=== PATIENT | female | born 1945 | race African-American/Black ===

== ENCOUNTER 2020-01-02 15:18 | Emergency (ER) | payer OTHER ==
[2020-01-02 15:29] VITALS: TEMP 99.4; BMI 36.3
[2020-01-02] MEDS ORDERED: LABETALOL HCL 5 MG/1 ML (100MG/20 ML VIAL) IVPUSH ONE ×2 (16:02→17:10)
[2020-01-02] MEDS ORDERED: LABETALOL HCL 5 MG/1 ML (200MG/40ML VIAL) IVPB ONE (16:10)
--- NOTE | 2020-01-02 16:15 | PDOC ---
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 Pt states at approximately 1 pm after getting up from the seated position she felt weak and lightheaded, pt daughter checked BP, noted to be over 200 and pt presented to the ED. Pt admits to persistent lightheadedness and new bilateral blurry vision while in the ED. Pt denies MURPHY, weakness/sensory changes on 1 side, neck pain, recent trauma, N/V/F/C, changes in speech or gait, CP, SOB, back pain, abdominal pain, changes in bowel or bladder habits, cough, sick contacts. Pt is visiting from [place] and does not have a PCP in [place]. Past History - Past Medical History Allergies/Adverse Reactions: Allergies Allergy/AdvReac Type Severity Reaction Status Date / Time No Known Allergies Allergy Verified 01/02/20 15:29 Home Medications: Ambulatory Orders Amlodipine Besylate [Norvasc -] 5 mg PO DAILY #30 tablet 01/02/20 COPD: No - Surgical History Cardiac Surgery: No - Immunization History Immunization Up to Date: No - Psycho Social/Smoking Cessation Hx Smoking History: Never smoked Have you smoked in the past 12 months: No Information on smoking cessation initiated: No Hx Alcohol Use: No Drug/Substance Use Hx: No Review of Systems - Review of Systems Constitutional: Yes: See HPI HEENTM: Yes: See HPI Respiratory: Yes: See HPI Cardiac (ROS): Yes: See HPI ABD/GI: Yes: See HPI : Yes: See HPI Musculoskeletal: Yes: See HPI Integumentary: Yes: See HPI Neurological: Yes: See HPI *Physical Exam - Vital Signs Last Vital Signs Temp Pulse Resp BP Pulse Ox 99.4 F 104 H 16 237/132 H 97 01/02/20 15:27 01/02/20 16:08 01/02/20 15:27 01/02/20 16:08 01/02/20 15:27 - Physical Exam General Appearance: Yes: Nourished, Appropriately Dressed. No: Apparent Distress HEENT: positive: EOMI, LIZZETH, Normal Voice Neck: positive: Supple. negative: Carotid bruit Respiratory/Chest: positive: Lungs Clear, Normal Breath Sounds. negative: Respiratory Distress, Accessory Muscle Use, Rapid RR, Crackles, Rales, Rhonchi, Stridor, Wheezing Cardiovascular: positive: Regular Rhythm, S1, S2, Tachycardia. negative: Edema, JVD, Murmur Vascular Pulses: Dorsalis-Pedis (R): 4+, Doralis-Pedis (L): 4+ Gastrointestinal/Abdominal: positive: Flat, Soft. negative: Protuberent, Distended, Guarding, Rebound, Tenderness Musculoskeletal: negative: CVA Tenderness Extremity: positive: Normal Capillary Refill, Normal Inspection, Normal Range of Motion Integumentary: positive: Normal Color, Dry, Warm Neurologic: positive: outside food server II-XII NML intact, Fully Oriented, Alert, Normal Mood/Affect, Normal Response, Motor Strength 5/5, Other (no unilateral visual changes, pt able to discriminate fingers at 6 inches and 6 feet). 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 Pt states at approximately 1 pm after getting up from the seated position she felt weak and lightheaded, pt daughter checked BP, noted to be over 200 and pt presented to the ED. Pt admits to persistent lightheadedness and new bilateral blurry vision while in the ED. Pt denies MURPHY, weakness/sensory changes on 1 side, neck pain, recent trauma, N/V/F/C, changes in speech or gait, CP, SOB, back pain, abdominal pain, changes in bowel or bladder habits, cough, sick contacts. Pt is visiting from [place] and does not have a PCP in [place]. vitals show elevated BP over 230 and HR 104 Do not have past medical records to compare, EKG NSR without acute signs of ischemia CXR no infiltrates, heart is enlarged Head CT normal 01/02/20 18:09 Labs show elevated renal function, no prior values to compare Discussed case with pt son Kahlil [phone], states Mother just moved to [place] on the of this month and does not have PCP f/u prisca Berryibe placed a referral with call back in 3-5 days for appo intment with [facility] Shared decision making with the patient and her son to not have her admitted during the COVID pandemic since she does not have signs of COVID on vitals or CXR, pt and son agrees outpatient follow up and starting on 5 mg amlodipine is the best course of action for the patient. BP improved to 190s systolic after labetolol and amlodipine. Pt feels well, denies blurry vision and lightheadedness, ambulates without difficulty pt safe for DC home with BP meds and PCP f/u Son will pick the pt up and is aware of discharge plans Discharge - Discharge Information Problems reviewed: Yes Clinical Impression/Diagnosis: Hypertension Condition: Stable - Admission No - Additional Discharge Information Prescriptions: Amlodipine Besylate [Norvasc -] 5 mg PO DAILY #30 tablet - Follow up/Referral Referrals: [facility] [place] [Provider Group] - Patient Discharge Instructions Patient Printed Discharge Instructions: DI for High Blood Pressure, How to Monitor Your Blood Pressure at Home Additional Instructions: You will receive a call from the Primary Doctor clinic referred to you at [facility] within the next 3-5 days. Please call the clinic Saturday morning as well to inform them. Please take the medication Amlodipine 5 mg daily until you see the Primary Doctor and have further instruction. Discuss your elevated renal function labs with the Primary doctor as well. Return to the ER for new or concerning symptoms including but not limited to: headaches, changes in vision, changes in speech, changes in balance. Thank you - Post Discharge Activity
--- NOTE | 2020-01-02 16:29 | PDOC ---
Documentation entered by Chris Jones SCRIBE, acting as scribe for Marcia Duncan MD. Marcia Duncan MD: This documentation has been prepared by the Karen olson Angel, SCRIBE, under my direction and personally reviewed by me in its entirety. I confirm that the documentation accurately reflects all work, treatment, procedures, and medical decision making performed by me. Attending Attestation - Resident Resident Name: PioKamari - ED Attending Attestation I have performed the following: I have examined & evaluated the patient, The case was reviewed & discussed with the resident, I agree w/resident's findings & plan, Exceptions are as noted - HPI HPI: 01/02/20 16:25 The patient is a 74 year old female with a significant past medical history of DVT, PE and HTN (non-compliant with medications) who presents to the ED with lightheadedness, bilateral blurry vision and high blood pressure. The patient states hat earlier today she stood up and began feeling lightheaded and weak, shortly after the patients daughter checked her blood pressure which was over 200 prompting her arrival to the ED. The patient denies SOB, changes to gait, nausea, vomiting, diarrhea, constipation or headache. - Physicial Exam PE: 01/02/20 16:28 NAD, well appearing EOMI, LIZZETH RRR CTABL soft NTND gait, balance, speech WNL A&O x 3 - Medical Decision Making 01/02/20 16:28 74yoF hx of HTN not on meds, DVT/PE not on AC presents w/ HTN and mild symptoms. - labs - hct - cxr - ekg - bp control, start EMILY-I - DC, needs PMD for f/u. Discharge - Discharge Information Problems reviewed: Yes Clinical Impression/Diagnosis: Hypertension Condition: Stable - Follow up/Referral - Patient Discharge Instructions - Post Discharge Activity
[2020-01-02 16:59] LABS: BASO % 0.4 % (0-2.0); EOS % 1.3 % (0-4.5); HEMATOCRIT 37.2 % (32.4-45.2); MCH 26.1 pg (25.7-33.7); MCHC 32.4 g/dl (32.0-36.0); MEAN CELL VOLUME 80.7 fl (80-96); MEAN PLT VOLUME 11.6 fl (7.5-11.1); MONO % 6.1 % (3.8-10.2); NEUT % 68.2 % (42.8-82.8); PLATELET COUNT 159 K/MM3 (134-434); RBC 4.61 M/mm3 (3.60-5.2); RDW 14.7 % (11.6-15.6); WHITE BLOOD COUNT 7.2 K/mm3 (4.0-10.0)
[2020-01-02] MEDS ORDERED: amLODIPine BESYLATE 5 MG TABLET (FP) PO ONE (17:10)
[2020-01-02] MEDS ORDERED: amLODIPine BESYLATE 5 MG TABLET (FP) ONE (17:14)
[2020-01-02 17:19] LABS: BILIRUBIN,TOTAL 0.7 mg/dL (0.2-1); BLOOD UREA NITROGEN 18.4 mg/dL (7-18); CREATININE 1.7 mg/dL (0.55-1.3); POTASSIUM 3.9 mmol/L (3.5-5.1); TOT PROT 7.6 g/dl (6.4-8.2)
[2020-01-02 17:26] LABS: INR 1.01 (0.83-1.09); PROTHROMBIN TIME (PATIENT) 11.9 SEC (9.7-13.0)
[2020-01-02 18:15] VITALS: BP 194/98; PULSE 96
[2020-01-04] MEDS ORDERED: FAMOTIDINE 20 MG TABLET ONE (14:46)
--- NOTE | 2020-01-04 14:54 | EKG ---
Test Reason : Blood Pressure : / mmHG Vent. Rate : 080 BPM Atrial Rate : 080 BPM P-R Int : 150 ms QRS Dur : 088 ms QT Int : 378 ms P-R-T Axes : 034 -25 148 degrees QTc Int : 435 ms NORMAL SINUS RHYTHM LEFT VENTRICULAR HYPERTROPHY WITH REPOLARIZATION ABNORMALITY ABNORMAL ECG WHEN COMPARED WITH ECG OF 02-JAN-2020 15:47, T WAVE INVERSION NOW EVIDENT IN LATERAL LEADS Confirmed by GLADIS LEONARD MD ([id number]) on 01/04/2020 2:53:23 PM Referred By: Confirmed By:GLADIS LEONARD MD
--- NOTE | 2020-01-04 14:54 | EKG ---
Test Reason : Blood Pressure : / mmHG Vent. Rate : 102 BPM Atrial Rate : 102 BPM P-R Int : 160 ms QRS Dur : 086 ms QT Int : 342 ms P-R-T Axes : 042 -07 079 degrees QTc Int : 445 ms SINUS TACHYCARDIA MINIMAL VOLTAGE CRITERIA FOR LVH, MAY BE NORMAL VARIANT BORDERLINE ECG NO PREVIOUS ECGS AVAILABLE Confirmed by GLADIS LEONARD MD ([id number]) on 01/04/2020 2:53:32 PM Referred By: Confirmed By:GLADIS LEONARD MD
--- NOTE | 2020-01-08 17:21 | PDOC ---
Documentation entered by Loreta Mcmanus SCRIBE, acting as scribe for Jaylen Diaz DO. Jaylen Diaz DO: This documentation has been prepared by the Marietta olson Xhesika, SCRIBE, under my direction and personally reviewed by me in its entirety. I confirm that the documentation accurately reflects all work, treatment, procedures, and medical decision making performed by me. *Physical Exam - Vital Signs Last Vital Signs Temp Pulse Resp BP Pulse Ox 99.4 F 104 H 18 218/115 H 98 01/02/20 15:27 01/02/20 16:24 01/02/20 16:24 01/02/20 17:12 01/02/20 16:38 - Physical Exam 01/02/20 17:26 Patient signed out to me by previous attending for follow up chest CT and labs patient came to ED for minimal blurring of vision and htn no focal deficits one exam, awake, alert, well appearing ED Treatment Course - LABORATORY CBC & Chemistry Diagram: 01/02/20 16:00 01/02/20 16:00 - ADDITIONAL ORDERS Additional order review: Laboratory Results 01/02/20 01/02/20 16:00 15:48 Sodium 142 Potassium 3.9 Chloride 109 H Carbon Dioxide 25 Anion Gap 8 BUN 18.4 H Creatinine 1.7 H Est GFR (CKD-EPI)AfAm 34.32 Est GFR (CKD-EPI)NonAf 29.61 POC Glucometer 168 Random Glucose 158 H Calcium 8.0 L Total Bilirubin 0.7 AST 12 L ALT 16 Alkaline Phosphatase 106 Creatine Kinase 134 Troponin I 0.02 Total Protein 7.6 Albumin 3.0 L 01/02/20 01/02/20 16:00 15:48 RBC 4.61 MCV 80.7 MCHC 32.4 RDW 14.7 MPV 11.6 H Neutrophils % 68.2 Lymphocytes % 24.0 Monocytes % 6.1 Eosinophils % 1.3 Basophils % 0.4 POC Glucometer 168 - Medications Given in the ED: ED Medications Discontinued Medications Generic Name Dose Route Start Last Admin Trade Name Freq PRN Reason Stop Dose Admin Amlodipine Besylate 5 mg 01/02/20 17:10 01/02/20 17:24 Norvasc - PO 01/02/20 17:11 5 mg ONCE ONE Administration Labetalol HCl 10 mg 01/02/20 16:02 01/02/20 16:21 Normodyne Injection - IVPUSH 01/02/20 16:03 10 mg ONCE ONE Administration Labetalol HCl 10 mg 01/02/20 17:10 01/02/20 17:23 Normodyne Injection - IVPUSH 01/02/20 17:11 10 mg ONCE ONE Administration Medical Decision Making - Medical Decision Making 01/02/20 17:32 Patient signed out to em by previous attending follow up chest CT and labs patient came to ED for minimal blurring of vision and htn no focal deficits one exam, awake, alert, well appearing reassess: BP decreased, pt feeling better will give po amlodipine, recheck BP 40% reduction on map creatinine elevated but unclear to previous levels advise to follow up with PCP as soon as possible pt is stable at this time will berkley d/c on amlodipine Discharge - Discharge Information Problems reviewed: Yes Clinical Impression/Diagnosis: Hypertension Condition: Stable Disposition: HOME - Additional Discharge Information Prescriptions: Amlodipine Besylate [Norvasc -] 5 mg PO DAILY #30 tablet - Follow up/Referral Referrals: [facility] at [place] [Provider Group] - Patient Discharge Instructions Patient Printed Discharge Instructions: DI for High Blood Pressure, How to Monitor Your Blood Pressure at Home Additional Instructions: You will receive a call from the Primary Doctor clinic referred to you at [facility] within the next 3-5 days. Please call the clinic Saturday morning as well to inform them. Please take the medication Amlodipine 5 mg daily until you see the Primary Doctor and have further instruction. Discuss your elevated renal function labs with the Primary doctor as well. Return to the ER for new or concerning symptoms including but not limited to: headaches, changes in vision, changes in speech, changes in balance. Thank you - Post Discharge Activity
== END 2020-01-02 19:00 | disposition home or self-care (01) ==
LOC: JER 15:18
PROC: 3E033GC Introduction of Other Therapeutic Substance into Peripheral Vein, Percutaneous Approach (ICD-10-PCS; principal; 2020-01-02)
DX: I10 Essential (primary) hypertension (principal)
CPT/HCPCS: 36415; 70450-TC; 71045-TC-FY; 80053; 82550; 82962; 84484; 85025; 85610; 93005; 93010; 96374; 96376; 99285-25

== ENCOUNTER 2020-04-27 14:40 | Inpatient (IN) | payer OTHER ==
[2020-04-27 14:50] VITALS: BMI 46.0
[2020-04-27] MEDS ORDERED: LABETALOL HCL 5 MG/1 ML (100MG/20 ML VIAL) IVPUSH ONE ×3 (15:27→19:37)
[2020-04-27] MEDS ORDERED: LABETALOL HCL 5 MG/1 ML (200MG/40ML VIAL) IVPB ONE (15:38)
[2020-04-27 16:01] LABS: BASO % 1.3 % (0-2.0); EOS % 1.5 % (0-4.5); HEMATOCRIT 34.7 % (32.4-45.2); HEMOGLOBIN 11.3 GM/dL (10.7-15.3); LYMPH % 22.5 % (8-40); MCH 26.7 pg (25.7-33.7); MCHC 32.5 g/dl (32.0-36.0); MEAN CELL VOLUME 82.2 fl (80-96); MEAN PLT VOLUME 10.5 fl (7.5-11.1); MONO % 6.5 % (3.8-10.2); NEUT % 68.2 % (42.8-82.8); PLATELET COUNT 187 K/MM3 (134-434); RBC 4.22 M/mm3 (3.60-5.2); RDW 15.6 % (11.6-15.6); WHITE BLOOD COUNT 7.5 K/mm3 (4.0-10.0)
--- NOTE | 2020-04-27 16:08 | PDOC ---
History of Present Illness - General Chief Complaint: Blood Pressure Problem Stated Complaint: BLOOD PRESSURE PROBLEM Time Seen by Provider: 04/27/20 14:52 - History of Present Illness Initial Comments: 04/27/20 15:41 The patient is a 74 year old female with a significant past medical history of DVT, PE and HTN (non-compliant with medications) who presents to the ED with bilateral knee pain s/p fall as well as an elevated BP reading by EMS in the 200s. Pt states she was walking and tripped on an elevated sidewalk. Pt states she was able to brace her fall with her hands. Pt denies hitting her head and LOC. She does complain of bilateral knee pain after the fall, dull, not radiating. Able to walk. Before the fall, she denies lightheadedness, dizziness, palpitations, chest pain, SOB. Currently, ROS is negative. She states she saw the PCP she was referred to after her last ED presentation, but stopped taking the medications because it made her legs feel weak. PMH: as above PSH: remote history of bowel obstruction treated surgically Medications: was discharged on amlodipine 5mg, but does not take any medications Allergies: denies ROS GENERAL/CONSTITUTIONAL: No fever or chills. No weakness. HEAD, EYES, EARS, NOSE AND THROAT: No change in vision. No ear pain or discharge. No sore throat. CARDIOVASCULAR: No chest pain or shortness of breath RESPIRATORY: No cough, wheezing, or hemoptysis. GASTROINTESTINAL: No nausea, vomiting, diarrhea or constipation. GENITOURINARY: No dysuria, frequency, or change in urination. MUSCULOSKELETAL: b/l knee pain. no neck or back pain SKIN: No rash NEUROLOGIC: No headache, vertigo, loss of consciousness, or change in strength/sensation. ENDOCRINE: No increased thirst. No abnormal weight change HEMATOLOGIC/LYMPHATIC: No anemia, easy bleeding, or history of blood clots. ALLERGIC/IMMUNOLOGIC: No hives or skin allergy. PE GENERAL: Awake, alert, and fully oriented, in no acute distress HEAD: ecchymosis over lower left orbit without crepitus or instability EYES: PERRLA, EOMI, sclera anicteric, conjunctiva clear ENT: Auricles normal inspection, hearing grossly normal, nares patent, oropharynx clear without exudates. Moist mucosa NECK: Normal ROM, supple, no lymphadenopathy, JVD, or masses LUNGS: No distress, speaks full sentences, clear to auscultation bilaterally HEART: Regular rate and rhythm, normal S1 and S2, no murmurs, rubs or gallops, peripheral pulses normal and equal bilaterally. ABDOMEN: Soft, nontender, normoactive bowel sounds. No guarding, no rebound. No masses EXTREMITIES : Normal inspection, Normal range of motion, no edema. No clubbing or cyanosis. small abrasions on knees. Knees tender to palpation. Normal ROM, strength, sensation, gait. NEUROLOGICAL: Cranial nerves II through XII grossly intact. Normal speech, normal gait, no focal sensorimotor deficits SKIN: Warm, Dry, normal turgor, no rashes or lesions noted Vital Signs Temp Pulse Resp BP Pulse Ox 98.2 F 94 H 16 232/108 H 98 04/27/20 15:23 04/27/20 14:48 04/27/20 14:48 04/27/20 14:48 04/27/20 14:48 Assessment and Plan The patient is a 74 year old female with a significant past medical history of DVT, PE and HTN (non-compliant with medications) who presents to the ED with bilateral knee pain s/p fall as well as an elevated BP reading by EMS in the 200s. BP on arrival is 232/108. Other vitals wnl. Asymptomatic. Will get labs to assess for end organ damage. The fall is likely mechanical based on the story. Physical exam notable for ecchymosis over lower left orbit without crepitus or instability, as well as tenderness and small abrasions over both knees. Low concern for fracture given exam. Will get head and c-spine given mechanism and age. -EKG to evaluate for ishemic changes -CXR to evaluate for pulmonary edema and widened mediastinum -CBC, CMP, trops to evaluate for end organ ischemia or infection -CT head and c-spine -IV labetalol to reduce BP 04/27/20 17:10 EKG: NSR, vent rate 91, normal axis and intervals, CXR:No acute pathology. No significant change since 01/02/2020. IVC filter. Large heart. Unfolded aorta. Clear lungs. CT head: No acute pathology. No significant change since 01/02/2020. Large heart. Unfolded aorta. Clear lungs. CT c-spine: no evidence of fracture. Multilevel degenerative disc and facet joint changes are seen. labs: Repeat bp 219/120. Another 10mg labetalol IV given. 04/27/20 17:21 Repeat bp 201/80. HR 71 04/27/20 17:29 Med rec from [facility]: amplodipine 10mg, losartan/HCTZ 100mg/25mg, glipizide 04/27/20 18:53 Repeat BP 226/92. Will give 20mg labetalol IV and admit for resistant hypertension -- not a safe discharge. Past History - Medical History Allergies/Adverse Reactions: Allergies Allergy/AdvReac Type Severity Reaction Status Date / Time No Known Allergies Allergy Verified 01/02/20 15:29 Home Medications: Ambulatory Orders Amlodipine Besylate [Norvasc -] 5 mg PO DAILY #30 tablet 01/02/20 COPD: No - Surgical History Cardiac Surgery: No - Reproductive History Is Patient Now?: No - Immunization History Immunization Up to Date: No - Psycho-Social/Smoking History Smoking History: Never smoked Have you smoked in the past 12 months: No Information on smoking cessation initiated: No - Substance Abuse Hx (Audit-C & DAST Scrn) How often the patient has a drink containing alcohol: Never Score: In Men: 4 or > Positive; In Women: 3 or > Positive: 0 Screen Result (Pos requires Nsg. Audit-10AR): Negative In the last yr the pt used illegal drug/Rx for NonMed reason: No Score: Yes response is considered Positive: 0 Screen Result (Positive result requires Nsg. DAST-10): Negative *Physical Exam - Vital Signs Last Vital Signs Temp Pulse Resp BP Pulse Ox 98.2 F 94 H 16 232/108 H 98 04/27/20 15:23 04/27/20 14:48 04/27/20 14:48 04/27/20 14:48 04/27/20 14:48 ED Treatment Course - LABORATORY CBC & Chemistry Diagram: 04/28/20 05:40 04/28/20 05:40 - RADIOLOGY Radiology Studies Ordered: Category Date Time Status CERVICAL SPINE CT W/O CONTR [CT] Stat CT Scan 04/27/20 15:[address] WITHOUT CONTRAST [CT] Stat CT Scan 04/27/20 15:29 Ordered CHEST PA & LAT [RAD] Stat Radiology 04/27/20 15:29 Ordered Discharge - Discharge Information Problems reviewed: Yes Clinical Impression/Diagnosis: Hypertensive urgency Head injury due to trauma Qualifiers: Encounter type: initial encounter Qualified Code(s): S09.90XA - Unspecified injury of head, initial encounter - Follow up/Referral - Patient Discharge Instructions - Post Discharge Activity
--- NOTE | 2020-04-27 16:11 | PDOC ---
Documentation entered by Loreta Mcmanus SCRIBE, acting as scribe for Davon Loya MD. Davon Loya MD: This documentation has been prepared by the Marietta olson Xhesika, SCRIBE, under my direction and personally reviewed by me in its entirety. I confirm that the documentation accurately reflects all work, treatment, procedures, and medical decision making performed by me. Attending Attestation - Resident Resident Name: ArlenenieshaDheeraj - ED Attending Attestation I have performed the following: I have examined & evaluated the patient, The case was reviewed & discussed with the resident, I agree w/resident's findings & plan, Exceptions are as noted - HPI HPI: 04/27/20 15:09 The patient is a 74 year old female with a significant past medical history of DVT, PE and HTN (non-compliant with medications) who presents to the ED with bilateral knee pain s/p fall. Pt states she was walking and tripped on an elevated sidewalk. Pt states she was able to brace her fall with her hands. Pt denies hitting her head and LOC. Allergies: NKDA - Physicial Exam PE: 04/27/20 16:06 EXAMINATION CONSTITUTIONAL: awake, alert; well-nourished; in no apparent distress HEAD: Normocephalic; atraumatic EYES: PERRL; EOM intact; + left periorbital edema with ttp ENMT: External appears normal; normal oropharynx NECK: Supple; non-tender; no midline cervical ttp CARD: Normal S1, S2; 2/6 se murmurs, no rubs, or gallops RESP: Normal chest excursion with respiration; breath sounds clear and equal bilaterally; no wheezes, rhonchi, or rales ABD: Soft, non-distended; non-tender; no palpable organomegaly, no palpable hernias EXT: Normal ROM in all four extremities; non-tender to palpation; distal pulses intact PELVIS: Stable SKIN: Warm, dry, no rash NEURO: cn ii-xii groslly intact, motor: 5/5x4, no pronation drift. gait-stable - Medical Decision Making 04/27/20 16:10 Patient is 75-year-old female with history of DVT/PE in the past, hypertension, noncompliant with medication regimen for the past 1 month presents with bilateral knee and facial pain status post mechanical fall and elevated blood pressure. In the ER, patient is noted to be hypertensive, nontoxic-appearing, without evidence of endorgan damage at this time. EKG shows no evidence of acute ischemia. Inverted T waves are noted and aVL and V6. Will obtain CT of head and cervical spine. Will administer IV labetalol followed by oral meds. If no evidence of SARAH, positive troponins, will discharge. Discharge - Discharge Information Problems reviewed: Yes Clinical Impression/Diagnosis: Hypertensive urgency Head injury due to trauma Qualifiers: Encounter type: initial encounter Qualified Code(s): S09.90XA - Unspecified injury of head, initial encounter - Follow up/Referral - Patient Discharge Instructions - Post Discharge Activity
[2020-04-27 16:30] LABS: ALBUMIN 3.2 g/dl (3.4-5.0); ALK PHOS 109 U/L (45-117); ANION GAP 5 MMOL/L (8-16); BILIRUBIN,TOTAL 1.1 mg/dL (0.2-1); CALCIUM 8.6 mg/dL (8.5-10.1); CHLORIDE 109 mmol/L (98-107); CO2 27 mmol/L (21-32); CREATININE 1.8 mg/dL (0.55-1.3); GLUCOSE,RANDOM 194 mg/dL (74-106); SGOT/AST 46 U/L (15-37); SGPT/ALT 18 U/L (13-61); SODIUM 140 mmol/L (136-145)
[2020-04-27 19:18] LABS: EPI CELLS 26 /uL (0-25.1); HYALINE CASTS 2 /uL (0-3.1); URINE APPEARANCE CLEAR; URINE BACTERIA 1977 /uL (0-1359); URINE BILIRUBIN NEGATIVE (NEGATIVE); URINE COLOR YELLOW; URINE GLUCOSE (UA) NEGATIVE (NEGATIVE); URINE KETONE NEGATIVE (NEGATIVE); URINE LEUK ESTERASE 1+ (NEGATIVE); URINE NITRITE NEGATIVE (NEGATIVE); URINE PROTEIN 3+ (NEGATIVE); URINE RBC 12 /uL (0-23.9); URINE UROBILINOGEN 0.2 mg/dL (0.2-1.0); URINE WBC 196 /uL (0-25.8)
--- NOTE | 2020-04-27 19:19 | PDOC ---
*Physical Exam - Vital Signs Last Vital Signs Temp Pulse Resp BP Pulse Ox 98.2 F 74 18 201/80 H 97 04/27/20 15:23 04/27/20 17:21 04/27/20 17:21 04/27/20 17:21 04/27/20 17:21 ED Treatment Course - LABORATORY CBC & Chemistry Diagram: 04/27/20 15:30 04/27/20 16:55 - ADDITIONAL ORDERS Additional order review: Laboratory Results 04/27/20 04/27/20 16:55 15:30 Sodium 140 Potassium 3.9 6.0 H Chloride 109 H Carbon Dioxide 27 Anion Gap 5 L BUN 20.0 H Creatinine 1.8 H Est GFR (CKD-EPI)AfAm 32.03 Est GFR (CKD-EPI)NonAf 27.63 Random Glucose 194 H Calcium 8.6 Total Bilirubin 1.1 H AST 46 H ALT 18 Alkaline Phosphatase 109 Creatine Kinase 303 H Creatine Kinase Index 0.9 CK-MB (CK-2) 3.0 Troponin I < 0.02 Total Protein 8.0 Albumin 3.2 L 04/27/20 15:30 RBC 4.22 MCV 82.2 MCHC 32.5 RDW 15.6 MPV 10.5 Neutrophils % 68.2 Lymphocytes % 22.5 Monocytes % 6.5 Eosinophils % 1.5 Basophils % 1.3 D - Medications Given in the ED: ED Medications Discontinued Medications Generic Name Dose Route Start Last Admin Trade Name Freq PRN Reason Stop Dose Admin Labetalol HCl 10 mg 04/27/20 15:27 04/27/20 15:35 Normodyne Injection - IVPUSH 04/27/20 15:28 10 mg ONCE ONE Administration Labetalol HCl 10 mg 04/27/20 16:50 04/27/20 17:03 Normodyne Injection - IVPUSH 04/27/20 16:51 10 mg ONCE ONE Administration Medical Decision Making - Medical Decision Making 04/27/20 19:13 Signed out to me by Dr. Mann. Patient has HTN and does not take medications, supposed to take amlodipine 10mg, losartan 100mg, HCTZ 25mg. Also had a fall and head injury. BP >200. Mentating normally, no MURPHY, deficits. CT head no ICH. Labs WNL other than Cr 1.8, slightly up from 1.7 prior, initial K hemolyzed and normal after. ECG NSR with HR 91, QTc 435, TWI V6, no CLINTON/D. Already given 2x 10mg labetalol with modest effect. Considering Cardene drip for refractory HTN. Will need admission for BP control and home anti-HTN medication planning. 04/27/20 19:36 Repeat BP 236/89, but mentating normally and feeling well. Discussed importance of BP management for long-term health. Giving 20mg labetalol as well as home 100mg Losartan and 25mg HCTZ. 04/27/20 21:10 SBP consistently over 200 despite medications. Starting Cardene drip for refractory HTN with BP goal max 25% decrease from baseline (> SBP 190) Consulting ICU for admission. 04/27/20 21:26 ICU consulted, will come down to evaluate, accepts for admission. Discharge - Discharge Information Problems reviewed: Yes Clinical Impression/Diagnosis: Hypertensive urgency Head injury due to trauma Qualifiers: Encounter type: initial encounter Qualified Code(s): S09.90XA - Unspecified injury of head, initial encounter - Follow up/Referral - Patient Discharge Instructions - Post Discharge Activity
[2020-04-27] MEDS ORDERED: LOSARTAN POTASSIUM 50 MG TABLET (FP) PO ONE (19:38)
[2020-04-27] MEDS ORDERED: HYDROCHLOROTHIAZIDE 25 MG TABLET (FP) PO ONE (19:38)
[2020-04-27] MEDS ORDERED: HYDROCHLOROTHIAZIDE 25 MG TABLET (FP) ONE (19:52)
[2020-04-27] MEDS ORDERED: LOSARTAN POTASSIUM 50 MG TABLET (FP) ONE (19:53)
[2020-04-27] MEDS ORDERED: NICARDIPINE 25 MG in DEXTROSE 5%-WATER - 240 ML IVPB SCH (21:15)
[2020-04-27] MEDS ORDERED: MUPIROCIN 2% TOPICAL OINTMENT FOR DECOLONIZATION NS SCH (23:30)
[2020-04-28] MEDS ORDERED: ACETAMINOPHEN 325 MG TABLET (FP) PO PRN (02:04)
[2020-04-28] MEDS: MUPIROCIN 2% TOPICAL OINTMENT FOR DECOLONIZATION NS SCH ×3 (02:30→22:08)
[2020-04-28] MEDS: NICARDIPINE 25 MG in DEXTROSE 5%-WATER - 240 ML IVPB SCH ×3 (03:37→23:22)
[2020-04-28 06:28] LABS: BASO % 0.4 % (0-2.0); EOS % 1.2 % (0-4.5); HEMATOCRIT 38.1 % (32.4-45.2); HEMOGLOBIN 12.5 GM/dL (10.7-15.3); LYMPH % 22.4 % (8-40); MCH 26.4 pg (25.7-33.7); MCHC 32.7 g/dl (32.0-36.0); MEAN CELL VOLUME 80.7 fl (80-96); MEAN PLT VOLUME 9.4 fl (7.5-11.1); MONO % 6.3 % (3.8-10.2); NEUT % 69.7 % (42.8-82.8); PLATELET COUNT 164 K/MM3 (134-434); RBC 4.72 M/mm3 (3.60-5.2); RDW 15.2 % (11.6-15.6); WHITE BLOOD COUNT 8.7 K/mm3 (4.0-10.0)
--- NOTE | 2020-04-28 06:43 | CONSULT ---
Consultation: REQUESTING PROVIDER: CONSULT REQUEST: We have been asked to medically evaluate this patient for (specify). 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 Pt reports walking down the street today and stepping into a pot hole, losing her balance, fell hit the left side of her face and bilateral knees. Pt denies LOC, CP, palpitations, SOB, MURPHY, changes in vision, weakness or sensory deficits on 1 side prior to or after the fall and states she accidentally tripped due to the pot hole. Pt states she was able to ambulate after the fall with a normal gait. Pt seen in the ED once before with elevated BP, treated with amlodipine and labetolol PO with improvement in BP to approx 25% decrease in systolic BP. Pt BP in the ED noted to be 240s systolic Pt states she saw the PCP she was referred to after her last ED presentation, but stopped taking the medications because it made her legs feel weak and has no t been taking any medications to control her BP Today, pt given a total of 40 mg Labetolol IV, 100 mg Losartan and 25 mg HCTZ without sustained improvement in BP and pt was started on a Nicardipine drip. CT head and C spine neg for CVA, fracture or dislocation Labs show persistent elevation in Cr since last lab work to 1.8 EKG: NSR, vent rate 91, normal axis and intervals Starting Cardene drip for refractory HTN with BP goal max 25% decrease from baseline (> SBP 190) REVIEW OF SYSTEMS: CONSTITUTIONAL: Absent: fever, chills, diaphoresis, generalized weakness, malaise, loss of appetite, weight change HEENT: Absent: rhinorrhea, nasal congestion, throat pain, throat swelling, difficulty swallowing, mouth swelling, ear pain, eye pain, visual changes CARDIOVASCULAR: Absent: chest pain, syncope, palpitations, irregular heart rate, lightheadedness, peripheral edema RESPIRATORY: Absent: cough, shortness of breath, dyspnea with exertion, orthopnea, wheezing, stridor, hemoptysis GASTROINTESTINAL: Absent: abdominal pain, abdominal distension, nausea, vomiting, diarrhea, constipation, melena, hematochezia GENITOURINARY: Absent: dysuria, frequency, urgency, hesitancy, hematuria, flank pain, genital pain MUSCULOSKELETAL: Admits to SKIN: Absent: rash, itching, pallor HEMATOLOGIC/IMMUNOLOGIC: Absent: easy bleeding, easy bruising, lymphadenopathy, frequent infections ENDOCRINE: Absent: unexplained weight gain, unexplained weight loss, heat intolerance, cold intolerance NEUROLOGIC: Absent: headache, focal weakness or paresthesias, dizziness, unsteady gait, seizure, mental status changes, bladder or bowel incontinence PSYCHIATRIC: Absent: anxiety, depression, suicidal or homicidal ideation, hallucinations. PHYSICAL EXAMINATION Vital Signs - 24 hr 04/27/20 04/27/20 04/27/20 14:48 15:23 16:05 Temperature 98.2 F Pulse Rate 94 H Pulse Rate [ 88 Apical] Respiratory 16 18 Rate Blood Pressure 232/108 H Blood Pressure [Left Arm] Blood Pressure 242/112 H [Right Arm] O2 Sat by Pulse 98 98 Oximetry (%) 04/27/20 04/27/20 04/27/20 16:30 17:19 17:21 Temperature Pulse Rate Pulse Rate [ 80 74 Apical] Respiratory 18 18 Rate Blood Pressure Blood Pressure [Left Arm] Blood Pressure 219/120 H 201/80 H [Right Arm] O2 Sat by Pulse 99 99 97 Oximetry (%) 04/27/20 04/27/20 04/27/20 19:03 19:50 20:48 Temperature Pulse Rate Pulse Rate [ 82 69 Apical] Respiratory 18 18 Rate Blood Pressure Blood Pressure 208/111 H [Left Arm] Blood Pressure 234/118 H [Right Arm] O2 Sat by Pulse 100 98 100 Oximetry (%) 04/27/20 04/27/20 04/27/20 21:10 22:10 23:27 Temperature Pulse Rate 69 Pulse Rate [ 70 90 Apical] Respiratory 18 18 Rate Blood Pressure 229/96 H Blood Pressure 250/114 H 217/84 H [Left Arm] Blood Pressure [Right Arm] O2 Sat by Pulse 97 100 Oximetry (%) 04/28/20 04/28/20 04/28/20 00:22 00:45 01:30 Temperature 98.3 F Pulse Rate 83 70 77 Pulse Rate [ Apical] Respiratory 24 H 12 17 Rate Blood Pressure 196/98 H 197/85 H 189/81 H Blood Pressure [Left Arm] Blood Pressure [Right Arm] O2 Sat by Pulse 93 L 97 96 Oximetry (%) 08/04/28/20 04/28/20 02:03 02:10 02:22 Temperature Pulse Rate 103 H 79 75 Pulse Rate [ Apical] Respiratory 31 H 16 16 Rate Blood Pressure 230/104 H 217/101 H 190/81 H Blood Pressure [Left Arm] Blood Pressure [Right Arm] O2 Sat by Pulse 95 97 96 Oximetry (%) 04/28/20 04/28/20 04/28/20 02:30 03:37 04:35 Temperature Pulse Rate 81 77 73 Pulse Rate [ Apical] Respiratory 20 Rate Blood Pressure 155/119 H 174/85 H 194/152 H Blood Pressure [Left Arm] Blood Pressure [Right Arm] O2 Sat by Pulse 94 L Oximetry (%) 04/28/20 04:55 Temperature Pulse Rate 81 Pulse Rate [ Apical] Respiratory Rate Blood Pressure 180/100 H Blood Pressure [Left Arm] Blood Pressure [Right Arm] O2 Sat by Pulse Oximetry (%) GENERAL: Awake, alert, and fully oriented, in no acute distress. HEAD: Normal with no signs of trauma. EYES: Pupils equal, round and reactive to light, extraocular movements intact, sclera anicteric, conjunctiva clear. No lid lag. EARS, NOSE, THROAT: Ears normal, nares patent, oropharynx clear without exudates. Moist mucous membranes. NECK: Normal range of motion, supple without lymphadenopathy, JVD, or masses. LUNGS: Breath sounds equal, clear to auscultation bilaterally. No wheezes, and no crackles. No accessory muscle use. HEART: Regular rate and rhythm, normal S1 and S2 without murmur, rub or gallop. ABDOMEN: Soft, nontender, not distended, normoactive bowel sounds, no guarding, no rebound, no masses. No hepatomegaly or splenomegaly. MUSCULOSKELETAL: Normal range of motion at all joints. No bony deformities or tenderness. No CVA tenderness. UPPER EXTREMITIES: 2+ pulses, warm, well-perfused. No cyanosis. No clubbing. Cap refill <2 seconds. No peripheral edema. LOWER EXTREMITIES: 2+ pulses, warm, well-perfused. No calf tenderness. No peripheral edema. NEUROLOGICAL: Cranial nerves II-XII intact. Normal speech. Normal gait. PSYCHIATRIC: Cooperative. Good eye contact. Appropriate mood and affect. SKIN: Warm, dry, normal turgor, no rashes or lesions noted. Laboratory Results - last 24 hr 04/27/20 04/27/20 04/27/20 15:30 15:30 16:55 WBC 7.5 RBC 4.22 Hgb 11.3 Hct 34.7 MCV 82.2 MCH 26.7 MCHC 32.5 RDW 15.6 Plt Count 187 MPV 10.5 Absolute Neuts (auto) 5.1 Neutrophils % 68.2 Lymphocytes % 22.5 Monocytes % 6.5 Eosinophils % 1.5 Basophils % 1.3 D Nucleated RBC % 0 Sodium 140 Potassium 6.0 H 3.9 Chloride 109 H Carbon Dioxide 27 Anion Gap 5 L BUN 20.0 H Creatinine 1.8 H Est GFR (CKD-EPI)AfAm 32.03 Est GFR (CKD-EPI)NonAf 27.63 Random Glucose 194 H Calcium 8.6 Total Bilirubin 1.1 H AST 46 H ALT 18 Alkaline Phosphatase 109 Creatine Kinase 303 H Creatine Kinase Index 0.9 CK-MB (CK-2) 3.0 Troponin I < 0.02 Total Protein 8.0 Albumin 3.2 L Urine Color Urine Appearance Urine pH Ur Specific [place] Urine Protein Urine Glucose (UA) Urine Ketones Urine Blood Urine Nitrite Urine Bilirubin Urine Urobilinogen Ur Leukocyte Esterase Urine WBC (Auto) Urine RBC (Auto) Urine Casts (Auto) U Epithel Cells (Auto) Urine Bacteria (Auto) 04/27/20 04/28/20 19:00 05:40 WBC 8.7 RBC 4.72 Hgb 12.5 Hct 38.1 MCV 80.7 MCH 26.4 MCHC 32.7 RDW 15.2 Plt Count 164 MPV 9.4 D Absolute Neuts (auto) 6.0 Neutrophils % 69.7 Lymphocytes % 22.4 Monocytes % 6.3 Eosinophils % 1.2 Basophils % 0.4 Nucleated RBC % 0 Sodium Potassium Chloride Carbon Dioxide Anion Gap BUN Creatinine Est GFR (CKD-EPI)AfAm Est GFR (CKD-EPI)NonAf Random Glucose Calcium Total Bilirubin AST ALT Alkaline Phosphatase Creatine Kinase Creatine Kinase Index CK-MB (CK-2) Troponin I Total Protein Albumin Urine Color Yellow Urine Appearance Clear Urine pH 5.0 Ur Specific [place] 1.016 Urine Protein 3+ H Urine Glucose (UA) Negative Urine Ketones Negative Urine Blood 1+ H Urine Nitrite Negative Urine Bilirubin Negative Urine Urobilinogen 0.2 Ur Leukocyte Esterase 1+ H Urine WBC (Auto) 196 Urine RBC (Auto) 12 Urine Casts (Auto) 2 U Epithel Cells (Auto) 26 Urine Bacteria (Auto) 1977 Active Medications Generic Name Dose Route Start Last Admin Trade Name Freq PRN Reason Stop Dose Admin Acetaminophen 650 mg 04/28/20 02:04 Tylenol - PO Q6H PRN Fever Or Pain Chlorhexidine Gluconate 1 applic 04/28/20 22:00 Hibiclens For Decolonization - TP HS MANDY Nicardipine HCl 25 mg/ 250 mls @ 25 mls/hr 04/28/20 02:45 04/28/20 04:55 Dextrose IVPB 3.5 mg/hr TITR MANDY 35 mls/hr Administration Protocol 2.5 MG/HR Mupirocin 1 applic 04/27/20 23:30 04/28/20 02:30 Bactroban Ointment (For Decolonization) - NS 05/02/20 23:29 1 applic BID MANDY Administration ASSESSMENT/PLAN: The patient is a 74 year old female with a significant past medical history of DVT, PE and HTN presents to the ED with bilateral knee pain s/p fall as well as an elevated BP reading by EMS in the 200s. Asymptomatic persistent hypertension, hypertensive urgency, persistently elevated Cr for concerns of end organ damage. Physical exam notable for ecchymosis over lower left orbit without crepitus or instability, as well as tenderness and small abrasions over both knees however, pt able to ambulate and full weight bare, no neuro deficits and CT head and C spine neg fror acute changes Dispo: We will continue to follow the patient. Thank you for this consultative opportunity. ATTENDING PHYSICIAN STATEMENT I saw and evaluated the patient. I reviewed the resident's note and discussed the case with the resident. I agree with the resident's findings and plan as documented. SUBJECTIVE: OBJECTIVE: ASSESSMENT AND PLAN:
[2020-04-28 06:54] LABS: ALBUMIN 3.4 g/dl (3.4-5.0); BILIRUBIN,TOTAL 0.9 mg/dL (0.2-1); CREATININE 1.6 mg/dL (0.55-1.3); MAGNESIUM 1.6 mg/dL (1.8-2.4); PHOSPHOROUS 3.2 mg/dL (2.5-4.9); POTASSIUM 3.8 mmol/L (3.5-5.1)
--- NOTE | 2020-04-28 10:00 | EKG ---
Test Reason : Blood Pressure : / mmHG Vent. Rate : 091 BPM Atrial Rate : 091 BPM P-R Int : 152 ms QRS Dur : 082 ms QT Int : 354 ms P-R-T Axes : 049 014 078 degrees QTc Int : 435 ms NORMAL SINUS RHYTHM NONSPECIFIC T WAVE ABNORMALITY ABNORMAL ECG WHEN COMPARED WITH ECG OF 02-JAN-2020 16:22, NO SIGNIFICANT CHANGE WAS FOUND Confirmed by SINAN SHABAZZ MD ([id number]) on 04/28/2020 10:00:30 AM Referred By: Confirmed By:SINAN SHABAZZ MD
--- NOTE | 2020-04-28 12:40 | CON.CARD ---
Cardiology Consult (text) - Consultation Consultation Note: cc: fall hpi: 74 f hx htn, ckd, pe/dvt here s/p fall. Was walking on sidewalk and tripped and landed on knees. No prodrome sxs, no loc. No hx of falls. No cp sob palps dizzy loc pnd orthopnea le edema. Came to er and found to have very elevated bp and started on nicard gtt. pmh: per hpi psh: per hpi social: no tob fam: no premature cad, scd ros: per hpi; all others nl meds: Home Medications Medication Instructions Recorded Amlodipine Besylate [Norvasc -] 5 mg PO DAILY #30 tablet 01/02/20 pe: Vital Signs Period Temp Pulse Resp BP Sys/Quiroz Pulse Ox Last 24 Hr 98.2 F-98.6 F 69-103 12-31 142-250/74-152 93-100 nad no jvd rrr s1s2 no mrg cta bl nl eff aao3 no jaundice diaphoresis pos dp pt no carotid bruits abd nt nd pos bs no le e/c/c Laboratory Last Values WBC 8.7 K/mm3 (4.0-10.0) 04/28/20 05:40 RBC 4.72 M/mm3 (3.60-5.2) 04/28/20 05:40 Hgb 12.5 GM/dL (10.7-15.3) 04/28/20 05:40 Hct 38.1 % (32.4-45.2) 04/28/20 05:40 MCV 80.7 fl (80-96) 04/28/20 05:40 MCH 26.4 pg (25.7-33.7) 04/28/20 05:40 MCHC 32.7 g/dl (32.0-36.0) 04/28/20 05:40 RDW 15.2 % (11.6-15.6) 04/28/20 05:40 Plt Count 164 K/MM3 (134-434) 04/28/20 05:40 MPV 9.4 fl (7.5-11.1) D 04/28/20 05:40 Absolute Neuts (auto) 6.0 K/mm3 (1.5-8.0) 04/28/20 05:40 Neutrophils % 69.7 % (42.8-82.8) 04/28/20 05:40 Lymphocytes % 22.4 % (8-40) 04/28/20 05:40 Monocytes % 6.3 % (3.8-10.2) 04/28/20 05:40 Eosinophils % 1.2 % (0-4.5) 04/28/20 05:40 Basophils % 0.4 % (0-2.0) 04/28/20 05:40 Nucleated RBC % 0 % (0-0) 04/28/20 05:40 Sodium 142 mmol/L (136-145) 04/28/20 05:40 Potassium 3.8 mmol/L (3.5-5.1) 04/28/20 05:40 Chloride 107 mmol/L (98-107) 04/28/20 05:40 Carbon Dioxide 26 mmol/L (21-32) 04/28/20 05:40 Anion Gap 9 MMOL/L (8-16) 04/28/20 05:40 BUN 17.0 mg/dL (7-18) 04/28/20 05:40 Creatinine 1.6 mg/dL (0.55-1.3) H 04/28/20 05:40 Est GFR (CKD-EPI)AfAm 36.93 04/28/20 05:40 Est GFR (CKD-EPI)NonAf 31.86 04/28/20 05:40 POC Glucometer 175 UNITS (80-120) 04/28/20 11:21 Random Glucose 145 mg/dL (74-106) H 04/28/20 05:40 Calcium 9.0 mg/dL (8.5-10.1) 04/28/20 05:40 Phosphorus 3.2 mg/dL (2.5-4.9) 04/28/20 05:40 Magnesium 1.6 mg/dL (1.8-2.4) L 04/28/20 05:40 Total Bilirubin 0.9 mg/dL (0.2-1) 04/28/20 05:40 AST 15 U/L (15-37) 04/28/20 05:40 ALT 16 U/L (13-61) 04/28/20 05:40 Alkaline Phosphatase 118 U/L (45-117) H 04/28/20 05:40 Creatine Kinase 303 U/L (26-192) H 04/27/20 15:30 Creatine Kinase Index 0.9 % (0.0-5.0) 04/27/20 15:30 CK-MB (CK-2) 3.0 ng/mL (0.5-3.6) 04/27/20 15:30 Troponin I < 0.02 ng/ml (0.00-0.05) 04/27/20 15:30 Total Protein 8.0 g/dl (6.4-8.2) 04/28/20 05:40 Albumin 3.4 g/dl (3.4-5.0) 04/28/20 05:40 Urine Color Yellow 04/27/20 19:00 Urine Appearance Clear 04/27/20 19:00 Urine pH 5.0 (5.0-8.0) 04/27/20 19:00 Ur Specific [place] 1.016 (1.010-1.035) 04/27/20 19:00 Urine Protein 3+ (NEGATIVE) H 04/27/20 19:00 Urine Glucose (UA) Negative (NEGATIVE) 04/27/20 19:00 Urine Ketones Negative (NEGATIVE) 04/27/20 19:00 Urine Blood 1+ (NEGATIVE) H 04/27/20 19:00 Urine Nitrite Negative (NEGATIVE) 04/27/20 19:00 Urine Bilirubin Negative (NEGATIVE) 04/27/20 19:00 Urine Urobilinogen 0.2 mg/dL (0.2-1.0) 04/27/20 19:00 Ur Leukocyte Esterase 1+ (NEGATIVE) H 04/27/20 19:00 Urine WBC (Auto) 196 /uL (0-25.8) 04/27/20 19:00 Urine RBC (Auto) 12 /uL (0-23.9) 04/27/20 19:00 Urine Casts (Auto) 2 /uL (0-3.1) 04/27/20 19:00 U Epithel Cells (Auto) 26 /uL (0-25.1) 04/27/20 19:00 Urine Bacteria (Auto) 1977 /uL (0-1359) 04/27/20 19:00 tele: sr cxr: clear ecg: sr, nl intervals no ischemic changes a/p: 74 f hx htn, ckd, pe/dvt here s/p fall. htn: -improved on nicard gtt, agree with adding PO ARB this AM and weaning off gtt nuvia/ckd: -cr improving, cont bp control, monitor cr fall: -mechanical fall, no suggestion of cardiac etiology
[2020-04-28] MEDS: LOSARTAN POTASSIUM 50 MG TABLET (FP) PO SCH (13:03)
--- NOTE | 2020-04-28 16:39 | PN ---
Teaching Attending Note Name of Resident: Kamari Suero ATTENDING PHYSICIAN STATEMENT I saw and evaluated the patient. I reviewed the resident's note and discussed the case with the resident. I agree with the resident's findings and plan as documented. SUBJECTIVE: 74 F, DVT, PE not on AC due to noncompliance (?)) and HTN (non compliant on medi cation). Admitted via the ER due to a mechanical fall and bilateral knee pain. Noted to have a BP of 240/130 but asymptomatic. Required IV continuous infusion of Cardene to improve BP. Denies CP, SOB, MURPHY, BOV, etc. Intake & Output 04/25/20 04/26/20 04/27/20 04/28/20 23:59 23:59 23:59 23:59 Intake Total 200 Balance 200 Weight 285 lb Last Vital Signs Temp Pulse Resp BP Pulse Ox 98 F 65 18 180/81 H 95 04/28/20 16:00 04/28/20 16:00 04/28/20 16:00 04/28/20 16:00 04/28/20 09:00 Active Medications Acetaminophen (Tylenol -) 650 mg PO Q6H PRN PRN Reason: Fever Or Pain Chlorhexidine Gluconate (Hibiclens For Decolonization -) 1 applic TP HS [facility] Nicardipine HCl 25 mg/ (Dextrose) 250 mls @ 25 mls/hr IVPB TITR [facility]; Protocol Last Titration: 04/28/20 07:30 Dose: 1.25 mg/hr, 12.5 mls/hr Documented by: Losartan Potassium (Cozaar -) 50 mg PO DAILY [facility] Last Admin: 04/28/20 13:03 Dose: 50 mg Documented by: Mupirocin (Bactroban Ointment (For Decolonization) -) 1 applic NS BID [facility] Stop: 05/02/20 23:29 Last Admin: 04/28/20 11:15 Dose: 1 applic Documented by: REVIEW OF SYSTEMS: CONSTITUTIONAL: Absent: fever, chills, diaphoresis, generalized weakness, malaise, loss of appetite, weight change HEENT: Absent: rhinorrhea, nasal congestion, throat pain, throat swelling, difficulty swallowing, mouth swelling, ear pain, eye pain, visual changes CARDIOVASCULAR: Absent: chest pain, syncope, palpitations, irregular heart rate, lightheadedness, peripheral edema RESPIRATORY: Absent: cough, shortness of breath, dyspnea with exertion, orthopnea, wheezing, stridor, hemoptysis GASTROINTESTINAL: Absent: abdominal pain, abdominal distension, nausea, vomiting, diarrhea, constipation, melena, hematochezia GENITOURINARY: Absent: dysuria, frequency, urgency, hesitancy, hematuria, flank pain, genital pain MUSCULOSKELETAL: Admits to SKIN: Absent: rash, itching, pallor HEMATOLOGIC/IMMUNOLOGIC: Absent: easy bleeding, easy bruising, lymphadenopathy, frequent infections ENDOCRINE: Absent: unexplained weight gain, unexplained weight loss, heat intolerance, cold intolerance NEUROLOGIC: Absent: headache, focal weakness or paresthesias, dizziness, unsteady gait, seizure, mental status changes, bladder or bowel incontinence PSYCHIATRIC: Absent: anxiety, depression, suicidal or homicidal ideation, hallucinations. PHYSICAL EXAMINATION Vital Signs - 24 hr 04/27/20 04/27/20 04/27/20 14:48 15:23 16:05 Temperature 98.2 F Pulse Rate 94 H Pulse Rate [ 88 Apical] Respiratory 16 18 Rate Blood Pressure 232/108 H Blood Pressure [Left Arm] Blood Pressure 242/112 H [Right Arm] O2 Sat by Pulse 98 98 Oximetry (%) 04/27/20 04/27/20 04/27/20 16:30 17:19 17:21 Temperature Pulse Rate Pulse Rate [ 80 74 Apical] Respiratory 18 18 Rate Blood Pressure Blood Pressure [Left Arm] Blood Pressure 219/120 H 201/80 H [Right Arm] O2 Sat by Pulse 99 99 97 Oximetry (%) 04/27/20 04/27/20 04/27/20 19:03 19:50 20:48 Temperature Pulse Rate Pulse Rate [ 82 69 Apical] Respiratory 18 18 Rate Blood Pressure Blood Pressure 208/111 H [Left Arm] Blood Pressure 234/118 H [Right Arm] O2 Sat by Pulse 100 98 100 Oximetry (%) 04/27/20 04/27/20 04/27/20 21:10 22:10 23:27 Temperature Pulse Rate 69 Pulse Rate [ 70 90 Apical] Respiratory 18 18 Rate Blood Pressure 229/96 H Blood Pressure 250/114 H 217/84 H [Left Arm] Blood Pressure [Right Arm] O2 Sat by Pulse 97 100 Oximetry (%) 04/28/20 04/28/20 04/28/20 00:22 00:45 01:30 Temperature 98.3 F Pulse Rate 83 70 77 Pulse Rate [ Apical] Respiratory 24 H 12 17 Rate Blood Pressure 196/98 H 197/85 H 189/81 H Blood Pressure [Left Arm] Blood Pressure [Right Arm] O2 Sat by Pulse 93 L 97 96 Oximetry (%) 04/28/20 04/28/20 04/28/20 02:03 02:10 02:22 Temperature Pulse Rate 103 H 79 75 Pulse Rate [ Apical] Respiratory 31 H 16 16 Rate Blood Pressure 230/104 H 217/101 H 190/81 H Blood Pressure [Left Arm] Blood Pressure [Right Arm] O2 Sat by Pulse 95 97 96 Oximetry (%) 04/28/20 04/28/20 04/28/20 02:30 03:37 04:35 Temperature Pulse Rate 81 77 73 Pulse Rate [ Apical] Respiratory 20 Rate Blood Pressure 155/119 H 174/85 H 194/152 H Blood Pressure [Left Arm] Blood Pressure [Right Arm] O2 Sat by Pulse 94 L Oximetry (%) 04/28/20 04:55 Temperature Pulse Rate 81 Pulse Rate [ Apical] Respiratory Rate Blood Pressure 180/100 H Blood Pressure [Left Arm] Blood Pressure [Right Arm] O2 Sat by Pulse Oximetry (%) GENERAL: Awake, alert, and fully oriented, in no acute distress. HEAD: Normal with no signs of trauma. EYES: Pupils equal, round and reactive to light, extraocular movements intact, sclera anicteric, conjunctiva clear. No lid lag. EARS, NOSE, THROAT: Ears normal, nares patent, oropharynx clear without exudates. Moist mucous membranes. NECK: Normal range of motion, supple without lymphadenopathy, JVD, or masses. LUNGS: Breath sounds equal, clear to auscultation bilaterally. No wheezes, and no crackles. No accessory muscle use. HEART: Regular rate and rhythm, normal S1 and S2 without murmur, rub or gallop. ABDOMEN: Soft, nontender, not distended, normoactive bowel sounds, no guarding, no rebound, no masses. No hepatomegaly or splenomegaly. MUSCULOSKELETAL: Normal range of motion at all joints. No bony deformities or tenderness. No CVA tenderness. UPPER EXTREMITIES: 2+ pulses, warm, well-perfused. No cyanosis. No clubbing. Cap refill <2 seconds. No peripheral edema. LOWER EXTREMITIES: 2+ pulses, warm, well-perfused. No calf tenderness. No peripheral edema. NEUROLOGICAL: non-focal PSYCHIATRIC: Cooperative. Good eye contact. Appropriate mood and affect. SKIN: Warm, dry, normal turgor, no rashes or lesions noted. Laboratory Results - last 24 hr 04/27/20 04/27/20 04/27/20 15:30 15:30 16:55 WBC 7.5 RBC 4.22 Hgb 11.3 Hct 34.7 MCV 82.2 MCH 26.7 MCHC 32.5 RDW 15.6 Plt Count 187 MPV 10.5 Absolute Neuts (auto) 5.1 Neutrophils % 68.2 Lymphocytes % 22.5 Monocytes % 6.5 Eosinophils % 1.5 Basophils % 1.3 D Nucleated RBC % 0 Sodium 140 Potassium 6.0 H 3.9 Chloride 109 H Carbon Dioxide 27 Anion Gap 5 L BUN 20.0 H Creatinine 1.8 H Est GFR (CKD-EPI)AfAm 32.03 Est GFR (CKD-EPI)NonAf 27.63 Random Glucose 194 H Calcium 8.6 Total Bilirubin 1.1 H AST 46 H ALT 18 Alkaline Phosphatase 109 Creatine Kinase 303 H Creatine Kinase Index 0.9 CK-MB (CK-2) 3.0 Troponin I < 0.02 Total Protein 8.0 Albumin 3.2 L Urine Color Urine Appearance Urine pH Ur Specific Gardner Urine Protein Urine Glucose (UA) Urine Ketones Urine Blood Urine Nitrite Urine Bilirubin Urine Urobilinogen Ur Leukocyte Esterase Urine WBC (Auto) Urine RBC (Auto) Urine Casts (Auto) U Epithel Cells (Auto) Urine Bacteria (Auto) 04/27/20 04/28/20 19:00 05:40 WBC 8.7 RBC 4.72 Hgb 12.5 Hct 38.1 MCV 80.7 MCH 26.4 MCHC 32.7 RDW 15.2 Plt Count 164 MPV 9.4 D Absolute Neuts (auto) 6.0 Neutrophils % 69.7 Lymphocytes % 22.4 Monocytes % 6.3 Eosinophils % 1.2 Basophils % 0.4 Nucleated RBC % 0 Sodium Potassium Chloride Carbon Dioxide Anion Gap BUN Creatinine Est GFR (CKD-EPI)AfAm Est GFR (CKD-EPI)NonAf Random Glucose Calcium Total Bilirubin AST ALT Alkaline Phosphatase Creatine Kinase Creatine Kinase Index CK-MB (CK-2) Troponin I Total Protein Albumin Urine Color Yellow Urine Appearance Clear Urine pH 5.0 Ur Specific Gardner 1.016 Urine Protein 3+ H Urine Glucose (UA) Negative Urine Ketones Negative Urine Blood 1+ H Urine Nitrite Negative Urine Bilirubin Negative Urine Urobilinogen 0.2 Ur Leukocyte Esterase 1+ H Urine WBC (Auto) 196 Urine RBC (Auto) 12 Urine Casts (Auto) 2 U Epithel Cells (Auto) 26 Urine Bacteria (Auto) 1977 Active Medications Generic Name Dose Route Start Last Admin Trade Name Freq PRN Reason Stop Dose Admin Acetaminophen 650 mg 04/28/20 02:04 Tylenol - PO Q6H PRN Fever Or Pain Chlorhexidine Gluconate 1 applic 04/28/20 22:00 Hibiclens For Decolonization - TP HS [facility] Nicardipine HCl 25 mg/ 250 mls @ 25 mls/hr 04/28/20 02:45 04/28/20 04:55 Dextrose IVPB 3.5 mg/hr TITR [facility] 35 mls/hr Administration Protocol 2.5 MG/HR Mupirocin 1 applic 04/27/20 23:30 04/28/20 02:30 Bactroban Ointment (For Decolonization) - NS 05/02/20 23:29 1 applic BID [facility] Administration ASSESSMENT/PLAN: Hypertensive Urgency History of DVT, PE : Need to find out more details but she has not been on AC Non-compliance with medications and health care follow up Morbid Obesity R/O OSAS Jessica andre Start ARB and Norvasc : SBP goal in first 24 hours : 180mmHg then to 160 in the next 24 hours Sleep screen Weight loss VTE prophylaxis Requires ICU monitoring for titration of Jessica Hays Critical care time spent in reviewing chart, evaluating patient and formulating plan - 36 minutes. GENARO Screen - GENARO History Previously diagnosed with Sleep Apnea: No If Yes, currently using CPAP to treat your GENARO: No - SNORING Do you snore loudly (enough to be heard thru closed doors)?: Yes - TIRED Do you often feel tired, fatigued, or sleepy during daytime?: Yes - OBSERVED Has anyone observed you stop breathing during your sleep?: No - BLOOD PRESSURE Do you have or are being treated for high blood pressure?: Yes - BMI Answer Y if weight exceeds amount listed for your height: Yes .: HEIGHT & WEIGHT (lbs): 4'10" 167lbs; 4'11" 175 lbs; 5'0" 179lbs;. 5'1" 185lbs; 5'2" 191lbs; 5'3" 197lbs;. 5'4" 204lbs; 5'5" 210lbs; 5'6" 216lbs;. 5'7" 223lbs; 5'8" 230lbs; 5'9" 237lbs;. 5'10" 243lbs; 5'11" 250lbs; 6' 258lbs;. 6'1" 265lbs; 6'2" 272lbs; 6'3" 279lbs;. 6'4" 287lbs; 6'5" 295lbs - AGE Is your age over 50 yrs old?: Yes - NECK CIRCUMFERENCE Neck Circumference 40cm: No - GENDER Male: No - SCORE Total Score: 5 Score Interpretation: High Risk of GENARO .: Interpretation: Score 0-2: Low Risk GENARO. Score 3-4: Intermediate Risk GENARO. Score 5-8: High Risk GENARO
--- NOTE | 2020-04-28 17:18 | CONSULT ---
Consult Consult Specialty:: Nephrology Reason for Consultation:: HTN - History of Present Illness Chief Complaint: ckd and htn History of Present Illness: Pt is a 74 year old female with pmhx of dvt, PE, and htn who presents to the ER after a fall. She was found to be in hypertensive urgency. She does not take any of her htn meds. She is not compliant with diet either. She denies chest pain or shortness of breath. SHe was found to have elevated neckties painter as well. She required ICU admission and a nicardipine drip to control her bp. She is awake and alert. She denied headache. She denies dysuria or hematuria. She denies history of CKD. - History Source History Provided By: Patient, Medical Record - Past Medical History Cardio/Vascular: Yes: HTN Renal/: Yes: Renal Inusuff ...LMP: 04/27/20 ...: No - Alcohol/Substance Use Hx Alcohol Use: No - Smoking History Smoking history: Never smoked Have you smoked in the past 12 months: No Home Medications - Allergies Allergies/Adverse Reactions: Allergies Allergy/AdvReac Type Severity Reaction Status Date / Time No Known Allergies Allergy Verified 01/02/20 15:29 - Home Medications Home Medications: Ambulatory Orders Amlodipine Besylate [Norvasc -] 5 mg PO DAILY #30 tablet 01/02/20 Family Medical History Family History: Denies Review of Systems - Review of Systems Constitutional: reports: Malaise Eyes: reports: No Symptoms HENT: reports: No Symptoms Neck: reports: No Symptoms Cardiovascular: reports: No Symptoms Respiratory: reports: No Symptoms Gastrointestinal: reports: No Symptoms Genitourinary: reports: No Symptoms Musculoskeletal: reports: No Symptoms Integumentary: reports: No Symptoms Neurological: reports: No Symptoms Endocrine: reports: No Symptoms Hematology/Lymphatic: reports: No Symptoms Psychiatric: reports: No Symptoms Physical Exam Vital Signs: Vital Signs Temperature 98 F 04/28/20 16:00 Pulse Rate 65 04/28/20 16:00 Respiratory Rate 18 04/28/20 16:00 Blood Pressure 180/81 H 04/28/20 16:00 O2 Sat by Pulse Oximetry (%) 95 04/28/20 09:00 Constitutional: Yes: Calm Eyes: Yes: Conjunctiva Clear HENT: Yes: Atraumatic Neck: Yes: Supple Cardiovascular: Yes: S1, S2 Respiratory: Yes: CTA Bilaterally Gastrointestinal: Yes: Normal Bowel Sounds, Soft Renal/: Yes: WNL Musculoskeletal: Yes: WNL Edema: No Neurological: Yes: Oriented Psychiatric: Yes: Oriented Labs: CBC, BMP 04/28/20 05:40 04/28/20 05:40 Imaging - Results Cat Scan: Report Reviewed Problem List - Problems (1) CKD (chronic kidney disease) Code(s): N18.9 - CHRONIC KIDNEY DISEASE, UNSPECIFIED (2) Hypertensive urgency Code(s): I16.0 - HYPERTENSIVE URGENCY Assessment/Plan Current Medications Generic Name Dose Route Start Last Admin Trade Name Freq PRN Reason Stop Dose Admin Acetaminophen 650 mg 04/28/20 02:04 Tylenol - PO Q6H PRN Fever Or Pain Chlorhexidine Gluconate 1 applic 04/28/20 22:00 Hibiclens For Decolonization - TP HS MANDY Nicardipine HCl 25 mg/ 250 mls @ 25 mls/hr 04/28/20 02:45 04/28/20 07:30 Dextrose IVPB 1.25 mg/hr TITR [facility] 12.5 mls/hr Titration Protocol 2.5 MG/HR Losartan Potassium 50 mg 04/28/20 13:00 04/28/20 13:03 Cozaar - PO 50 mg DAILY [facility] Administration Mupirocin 1 applic 04/27/20 23:30 04/28/20 11:15 Bactroban Ointment (For Decolonization) - NS 05/02/20 23:29 1 applic BID [facility] Administration Laboratory Tests 04/27/20 04/27/20 04/27/20 15:30 16:55 19:00 Potassium 6.0 H 3.9 Creatinine 1.8 H Urine Protein 3+ H Urine Blood 1+ H COVID-19 ([facility]) 04/27/20 04/28/20 21:05 05:40 Potassium 3.8 Creatinine 1.6 H Urine Protein Urine Blood COVID-19 ([facility]) Not detected Impression 1. CKD 2. hypertensive urgency 3. hx f dvt/PE 4. non compliance 5. s/p fall 6. proteinuria Plan - decrease map by 25 percent - avoid hypotension (will hypoperfuse) - discussed compliance at length with pt - initial potassium was hemolyzed - repeat ua and check prt to neckties painter ratio - discussed with ICU team - agree with losartan but monitor neckties painter and potassium (should help with proteinuria) - will need further proteinuria workup as outpt
--- NOTE | 2020-04-28 18:12 | PN ---
Physical Exam: SUBJECTIVE: Patient seen and examined at bedside. denies CP, SOB. states she is non compliant with her home medications/. OBJECTIVE: Vital Signs Period Temp Pulse Resp BP Sys/Quiroz Pulse Ox Last 24 Hr 98 F-98.6 F 65-103 12-31 142-250/74-152 93-100 GENERAL: The patient is awake, alert, and fully oriented, in no acute distress. HEAD: Normal with no signs of trauma. LUNGS: Breath sounds equal, clear to auscultation bilaterally, no accessory muscle use. HEART: Regular rate and rhythm, S1, S2 without murmur ABDOMEN: Soft, nontender, nondistended, normoactive bowel sounds, no guarding EXTREMITIES: 2+ pulses, warm, well-perfused, no edema. NEUROLOGICAL: Cranial nerves II through XII grossly intact. Normal speech SKIN: Warm, dry, normal turgor, no rashes or lesions noted CBC, BMP 04/28/20 05:40 04/28/20 05:40 Active Medications Generic Name Dose Route Start Last Admin Trade Name Freq PRN Reason Stop Dose Admin Acetaminophen 650 mg 04/28/20 02:04 Tylenol - PO Q6H PRN Fever Or Pain Chlorhexidine Gluconate 1 applic 04/28/20 22:00 Hibiclens For Decolonization - TP HS [facility] Nicardipine HCl 25 mg/ 250 mls @ 25 mls/hr 04/28/20 02:45 04/28/20 07:30 Dextrose IVPB 1.25 mg/hr TITR [facility] 12.5 mls/hr Titration Protocol 2.5 MG/HR Losartan Potassium 50 mg 04/28/20 13:00 04/28/20 13:03 Cozaar - PO 50 mg DAILY [facility] Administration Mupirocin 1 applic 04/27/20 23:30 04/28/20 11:15 Bactroban Ointment (For Decolonization) - NS 05/02/20 23:29 1 applic BID [facility] Administration Head CT:No CT evidence of acute intracranial pathology. There has been no definite interval change in comparison to a prior CT exam of 01/02/2020. ASSESSMENT/PLAN: 74 yo F PMH HTN, DVT/PE ( not on AC) presented to ED s/p mechanical fall. admitted to ICU for hypertensive urgency Neuro: AOx3 CT head negative for acute pathology Cardio: cardio recs appreciated cont cozaar - cont with nicardipine drip. goal ~180/120 today cont tele monitoring Pulm: no acute events Renal: SARAH vs CKD - Cr 1.8->1.5. cont to trend - UA reviewed, proteinuria - cont with nicardipine drip. goal ~180/120 today - cont with cozaar - will start procardia tomorrow DVTppx: Hep 5K Sodium/ diabetic diet no standing fluids monitor lytes closely Dispo: cont ICU level of care ATTENDING PHYSICIAN STATEMENT I saw and evaluated the patient. I reviewed the resident's note and discussed the case with the resident. I agree with the resident's findings and plan as documented. SUBJECTIVE: OBJECTIVE: ASSESSMENT AND PLAN:
[2020-04-28] MEDS ORDERED: CHLORHEXIDINE GLUCONATE 4% CLEANSER FOR DECOLONIZATION TP SCH (22:00)
[2020-04-28] MEDS: CHLORHEXIDINE GLUCONATE 4% CLEANSER FOR DECOLONIZATION TP SCH (22:08)
[2020-04-28] MEDS: HEPARIN NA (PORCINE) 5,000 UNITS/ML 1ML VIAL SQ SCH (22:08)
[2020-04-28] MEDS ORDERED: PT OWN MED DRAWER 7, Y5N ONE (23:21)
[2020-04-29] MEDS: NICARDIPINE 25 MG in DEXTROSE 5%-WATER - 240 ML IVPB SCH ×2 (02:09→06:22)
[2020-04-29] MEDS: HEPARIN NA (PORCINE) 5,000 UNITS/ML 1ML VIAL SQ SCH ×3 (06:22→22:08)
--- NOTE | 2020-04-29 06:22 | PN ---
Progress Note, Physician Chief Complaint: episode vasovagal going to bathroom this AM: BM/diaphoretic/weak/lightheaded, resolved upon laying down Vitals stable, NSR on tele Denies CP/SOB/palps TELE: NSR History of Present Illness: HTN CKD Remote hx DVT and PE (4 years ago during prolonged hospitalization) SH: Non smoker - Current Medication List Current Medications: Active Medications Acetaminophen (Tylenol -) 650 mg PO Q6H PRN PRN Reason: Fever Or Pain Chlorhexidine Gluconate (Hibiclens For Decolonization -) 1 applic TP HS [facility] Last Admin: 04/28/20 22:08 Dose: 1 applic Documented by: Heparin Sodium (Porcine) (Heparin -) 5,000 unit SQ TID [facility] Last Admin: 04/28/20 22:08 Dose: 5,000 unit Documented by: Nicardipine HCl 25 mg/ (Dextrose) 250 mls @ 25 mls/hr IVPB TITR [facility]; Protocol Last Titration: 04/29/20 04:20 Dose: 8.5 mg/hr, 85 mls/hr Documented by: Losartan Potassium (Cozaar -) 50 mg PO DAILY [facility] Last Admin: 04/28/20 13:03 Dose: 50 mg Documented by: Mupirocin (Bactroban Ointment (For Decolonization) -) 1 applic NS BID [facility] Stop: 05/02/20 23:29 Last Admin: 04/28/20 22:08 Dose: 1 applic Documented by: Nifedipine (Procardia Xl -) 60 mg PO DAILY [facility] - Objective Vital Signs: Vital Signs Temperature 98.2 F 04/28/20 22:00 Pulse Rate 81 04/29/20 04:20 Respiratory Rate 16 04/29/20 01:45 Blood Pressure 144/95 04/29/20 04:20 O2 Sat by Pulse Oximetry (%) 91 L 04/29/20 01:45 Constitutional: Yes: No Distress, Calm Cardiovascular: Yes: Regular Rate and Rhythm Respiratory: Yes: CTA Bilaterally Gastrointestinal: Yes: Soft (nt), Abdomen, Obese Edema: No Neurological: Yes: Alert, Oriented ...Motor Strength: WNL Labs: CBC, BMP 04/28/20 05:40 04/28/20 05:40 Laboratory Tests 04/27/20 04/29/20 04/29/20 21:05 05:45 05:45 WBC 7.4 Hgb 11.9 Plt Count 172 Sodium 139 Potassium 4.1 Creatinine 1.6 H COVID-19 ([facility]) Not detected - ....Imaging EKG: Image Reviewed Assessment/Plan tele: sr cxr: clear ecg: sr, nl intervals no ischemic changes a/p: 74 f hx htn, ckd, pe/dvt here s/p fall. htn: -improved on nicard gtt. Procardia added today, wean drip. nuvia/ckd: -cr improving, cont bp control, monitor cr fall: -mechanical fall, no suggestion of cardiac etiology
[2020-04-29 07:30] LABS: HEMATOCRIT 36.5 % (32.4-45.2); HEMOGLOBIN 11.9 GM/dL (10.7-15.3); MCH 26.5 pg (25.7-33.7); MCHC 32.6 g/dl (32.0-36.0); MEAN CELL VOLUME 81.1 fl (80-96); MEAN PLT VOLUME 10.2 fl (7.5-11.1); PLATELET COUNT 172 K/MM3 (134-434); RBC 4.51 M/mm3 (3.60-5.2); RDW 15.2 % (11.6-15.6); WHITE BLOOD COUNT 7.4 K/mm3 (4.0-10.0)
[2020-04-29 08:18] LABS: BILIRUBIN,TOTAL 0.8 mg/dL (0.2-1); BLOOD UREA NITROGEN 21.5 mg/dL (7-18); CALCIUM 8.5 mg/dL (8.5-10.1); CREATININE 1.6 mg/dL (0.55-1.3); MAGNESIUM 1.6 mg/dL (1.8-2.4); PHOSPHOROUS 3.1 mg/dL (2.5-4.9); POTASSIUM 4.1 mmol/L (3.5-5.1); TOT PROT 7.2 g/dl (6.4-8.2)
--- NOTE | 2020-04-29 08:38 | PN ---
Physical Exam: SUBJECTIVE: Patient seen and examined at bedside; no acute events overnight- patient states she is very anxious to go home. patient is now on 5 of cardene gtt; she denies any CP/SOB/N/V OBJECTIVE: Vital Signs Period Temp Pulse Resp BP Sys/Quiroz Pulse Ox Last 24 Hr 97.8 F-98.6 F 60-94 13-21 140-225/65-119 90-98 GENERAL: The patient is awake, alert, and fully oriented, in no acute distress. EYES: PEERLA; EOMI; no scleral icterus NECK: no JVD; no lymphadenopathy LUNGS:CTA B/L no rales, rhonchi or wheezing HEART: Regular rate and rhythm, S1, S2 without murmur, rub or gallop. ABDOMEN: Soft, Nt/ND +BS in all 4 quadrants. EXTREMITIES: 2+ pulses, warm, well-perfused, no edema. PSYCH: Normal mood, normal affect. SKIN: Warm, dry, normal turgor, no rashes or lesions noted Laboratory Results - last 24 hr 04/27/20 04/28/20 04/28/20 21:05 11:21 17:34 WBC RBC Hgb Hct MCV MCH MCHC RDW Plt Count MPV Sodium Potassium Chloride Carbon Dioxide Anion Gap BUN Creatinine Est GFR (CKD-EPI)AfAm Est GFR (CKD-EPI)NonAf POC Glucometer 175 122 Random Glucose Calcium Phosphorus Magnesium Total Bilirubin AST ALT Alkaline Phosphatase Total Protein Albumin COVID-19 ([facility]) Not detected 04/29/20 04/29/20 05:45 05:45 WBC 7.4 RBC 4.51 Hgb 11.9 Hct 36.5 MCV 81.1 MCH 26.5 MCHC 32.6 RDW 15.2 Plt Count 172 MPV 10.2 Sodium 139 Potassium 4.1 Chloride 104 Carbon Dioxide 26 Anion Gap 9 BUN 21.5 H Creatinine 1.6 H Est GFR (CKD-EPI)AfAm 36.93 Est GFR (CKD-EPI)NonAf 31.86 POC Glucometer Random Glucose 180 H Calcium 8.5 Phosphorus 3.1 Magnesium 1.6 L Total Bilirubin 0.8 AST 20 ALT 18 Alkaline Phosphatase 114 Total Protein 7.2 Albumin 3.0 L COVID-19 ([facility]) Active Medications Generic Name Dose Route Start Last Admin Trade Name Freq PRN Reason Stop Dose Admin Acetaminophen 650 mg 04/28/20 02:04 Tylenol - PO Q6H PRN Fever Or Pain Chlorhexidine Gluconate 1 applic 04/28/20 22:00 04/28/20 22:08 Hibiclens For Decolonization - TP 1 applic HS [facility] Administration Heparin Sodium (Porcine) 5,000 unit 04/28/20 22:00 04/29/20 06:22 Heparin - SQ 5,000 unit TID [facility] Administration Nicardipine HCl 25 mg/ 250 mls @ 25 mls/hr 04/28/20 02:45 04/29/20 07:45 Dextrose IVPB 2.5 mg/hr TITR [facility] 25 mls/hr Titration Protocol 2.5 MG/HR Losartan Potassium 50 mg 04/28/20 13:00 04/28/20 13:03 Cozaar - PO 50 mg DAILY [facility] Administration Magnesium Sulfate 2 gm 04/29/20 08:22 Magnesium Sulfate IVPB 04/29/20 08:23 ONCE ONE Mupirocin 1 applic 04/27/20 23:30 04/28/20 22:08 Bactroban Ointment (For Decolonization) - NS 05/02/20 23:29 1 applic BID [facility] Administration Nifedipine 60 mg 04/29/20 10:00 Procardia Xl - PO DAILY [facility] ASSESSMENT/PLAN: 74 yo F PMH HTN, DVT/PE ( not on AC) presented to ED s/p mechanical fall. admitted to ICU for hypertensive urgency Neuro: AOx3 CT head negative for acute pathology Cardio: cardio recs appreciated cont cozaar - cont with nicardipine drip. goal ~160's today cont tele monitoring -willl start procardia and titrate drip to off Pulm: no acute events Renal: SARAH vs CKD - Cr 1.8->1.5->1.6. cont to trend - UA reviewed, proteinuria - cont with nicardipine drip. goal ~160 today - cont with cozaar - will start procardia this AM f/e/n not on standing fluids monitor electrolytes sodium diet dvt ppx:heparin Problem List - Problems (1) CKD (chronic kidney disease) Code(s): N18.9 - CHRONIC KIDNEY DISEASE, UNSPECIFIED (2) Hypertensive urgency Code(s): I16.0 - HYPERTENSIVE URGENCY Visit type - Emergency Visit Emergency Visit: Yes ED Registration Date: 04/27/20 Care time: The patient presented to the Emergency Department on the above date and was hospitalized for further evaluation of their emergent condition. - New Patient This patient is new to me today: No - Critical Care Critical Care patient: Yes Total Critical Care Time (in minutes): 35 Critical Care Statement: The care of this patient involved high complexity decision making to prevent further life threatening deterioration of the patient's condition and/or to evaluate & treat vital organ system(s) failure or risk of failure. - Discharge Referral Physician Referral: MATTEO Rome ([facility]) - Medication Review Med list reviewed for High Risk Meds patients 65 and older: Yes ATTENDING PHYSICIAN STATEMENT I saw and evaluated the patient. I reviewed the resident's note and discussed the case with the resident. I agree with the resident's findings and plan as documented. SUBJECTIVE: OBJECTIVE: ASSESSMENT AND PLAN:
[2020-04-29] MEDS ORDERED: MAGNESIUM 2GM/50ML STERILE WATER IVPB IVPB ONE (08:45)
[2020-04-29] MEDS: NIFEdipine E.R 60 MG TABLET PO SCH (09:03)
[2020-04-29] MEDS: LOSARTAN POTASSIUM 50 MG TABLET (FP) PO SCH (09:04)
[2020-04-29] MEDS: MUPIROCIN 2% TOPICAL OINTMENT FOR DECOLONIZATION NS SCH ×2 (09:04→22:08)
[2020-04-29] MEDS ORDERED: MAGNESIUM OXIDE 400 MG TABLET (FP) PO ONE ×2 (14:00→15:30)
--- NOTE | 2020-04-29 14:30 | PN ---
Teaching Attending Note Name of Resident: Arin King ATTENDING PHYSICIAN STATEMENT I saw and evaluated the patient. I reviewed the resident's note and discussed the case with the resident. I agree with the resident's findings and plan as documented. SUBJECTIVE: Patient seen and examined in the ICU. Awake and alert. BP improving on Cardene drip. Denies CP, SOB, MURPHY, BOV, etc. Intake & Output 04/26/20 04/27/20 04/28/20 04/29/20 23:59 23:59 23:59 23:59 Intake Total 890 558 Output Total 1200 Balance -310 558 Weight 285 lb 285 lb Last Vital Signs Temp Pulse Resp BP Pulse Ox 98.6 F 88 17 150/88 98 04/29/20 10:00 04/29/20 12:55 04/29/20 12:00 04/29/20 12:55 04/29/20 12:00 Active Medications Acetaminophen (Tylenol -) 650 mg PO Q6H PRN PRN Reason: Fever Or Pain Chlorhexidine Gluconate (Hibiclens For Decolonization -) 1 applic TP HS [facility] Last Admin: 04/28/20 22:08 Dose: 1 applic Documented by: Heparin Sodium (Porcine) (Heparin -) 5,000 unit SQ TID [facility] Last Admin: 04/29/20 13:27 Dose: 5,000 unit Documented by: Nicardipine HCl 25 mg/ (Dextrose) 250 mls @ 25 mls/hr IVPB TITR [facility]; Protocol Last Titration: 04/29/20 12:55 Dose: 0 mg/hr, 0 mls/hr Documented by: Losartan Potassium (Cozaar -) 50 mg PO DAILY [facility] Last Admin: 04/29/20 09:04 Dose: 50 mg Documented by: Mupirocin (Bactroban Ointment (For Decolonization) -) 1 applic NS BID [facility] Stop: 05/02/20 23:29 Last Admin: 04/29/20 09:04 Dose: 1 applic Documented by: Nifedipine (Procardia Xl -) 60 mg PO DAILY [facility] Last Admin: 04/29/20 09:03 Dose: 60 mg Documented by: GENERAL: Awake, alert, and fully oriented, in no acute distress. HEAD: Normal with no signs of trauma. EYES: Pupils equal, round and reactive to light, extraocular movements intact, sclera anicteric, conjunctiva clear. No lid lag. EARS, NOSE, THROAT: Ears normal, nares patent, oropharynx clear without exudates. Moist mucous membranes. NECK: Normal range of motion, supple without lymphadenopathy, JVD, or masses. LUNGS: Breath sounds equal, clear to auscultation bilaterally. No wheezes, and no crackles. No accessory muscle use. HEART: Regular rate and rhythm, normal S1 and S2 without murmur, rub or gallop. ABDOMEN: Soft, nontender, not distended, normoactive bowel sounds, no guarding, no rebound, no masses. No hepatomegaly or splenomegaly. MUSCULOSKELETAL: Normal range of motion at all joints. No bony deformities or tenderness. No CVA tenderness. UPPER EXTREMITIES: 2+ pulses, warm, well-perfused. No cyanosis. No clubbing. Cap refill <2 seconds. No peripheral edema. LOWER EXTREMITIES: 2+ pulses, warm, well-perfused. No calf tenderness. No peripheral edema. NEUROLOGICAL: non-focal PSYCHIATRIC: Cooperative. Good eye contact. Appropriate mood and affect. SKIN: Warm, dry, normal turgor, no rashes or lesions noted. Laboratory Results - last 24 hr 04/28/20 04/29/20 04/29/20 17:34 05:45 05:45 WBC 7.4 RBC 4.51 Hgb 11.9 Hct 36.5 MCV 81.1 MCH 26.5 MCHC 32.6 RDW 15.2 Plt Count 172 MPV 10.2 Sodium 139 Potassium 4.1 Chloride 104 Carbon Dioxide 26 Anion Gap 9 BUN 21.5 H Creatinine 1.6 H Est GFR (CKD-EPI)AfAm 36.93 Est GFR (CKD-EPI)NonAf 31.86 POC Glucometer 122 Random Glucose 180 H Calcium 8.5 Phosphorus 3.1 Magnesium 1.6 L Total Bilirubin 0.8 AST 20 ALT 18 Alkaline Phosphatase 114 Total Protein 7.2 Albumin 3.0 L 04/29/20 11:08 WBC RBC Hgb Hct MCV MCH MCHC RDW Plt Count MPV Sodium Potassium Chloride Carbon Dioxide Anion Gap BUN Creatinine Est GFR (CKD-EPI)AfAm Est GFR (CKD-EPI)NonAf POC Glucometer 184 Random Glucose Calcium Phosphorus Magnesium Total Bilirubin AST ALT Alkaline Phosphatase Total Protein Albumin ASSESSMENT/PLAN: Hypertensive Urgency History of DVT, PE : Need to find out more details but she has not been on AC Non-compliance with medications and health care follow up Morbid Obesity R/O OSAS Wean Cardene drip ARB & Procardia XL SBP goal less than 160 Sleep screen Weight loss VTE prophylaxis Can be monitored on Cardiac Telemetry once stable off Cardene drip GENARO Screen - GENARO History Previously diagnosed with Sleep Apnea: No If Yes, currently using CPAP to treat your GENARO: No - SNORING Do you snore loudly (enough to be heard thru closed doors)?: Yes - TIRED Do you often feel tired, fatigued, or sleepy during daytime?: Yes - OBSERVED Has anyone observed you stop breathing during your sleep?: No - BLOOD PRESSURE Do you have or are being treated for high blood pressure?: Yes - BMI Answer Y if weight exceeds amount listed for your height: Yes .: HEIGHT & WEIGHT (lbs): 4'10" 167lbs; 4'11" 175 lbs; 5'0" 179lbs;. 5'1" 185lbs; 5'2" 191lbs; 5'3" 197lbs;. 5'4" 204lbs; 5'5" 210lbs; 5'6" 216lbs;. 5'7" 223lbs; 5'8" 230lbs; 5'9" 237lbs;. 5'10" 243lbs; 5'11" 250lbs; 6' 258lbs;. 6'1" 265lbs; 6'2" 272lbs; 6'3" 279lbs;. 6'4" 287lbs; 6'5" 295lbs - AGE Is your age over 50 yrs old?: Yes - NECK CIRCUMFERENCE Neck Circumference 40cm: No - GENDER Male: No - SCORE Total Score: 5 Score Interpretation: High Risk of GENARO .: Interpretation: Score 0-2: Low Risk GENARO. Score 3-4: Intermediate Risk GENARO. Score 5-8: High Risk GENARO Dr Hays
--- NOTE | 2020-04-29 16:58 | PN ---
Progress Note, Physician History of Present Illness: Pt seen and examined at bedside. She is awake and alert. She denies shortness of breath. - Current Medication List Current Medications: Active Medications Acetaminophen (Tylenol -) 650 mg PO Q6H PRN PRN Reason: Fever Or Pain Chlorhexidine Gluconate (Hibiclens For Decolonization -) 1 applic TP HS [facility] Last Admin: 04/28/20 22:08 Dose: 1 applic Documented by: Heparin Sodium (Porcine) (Heparin -) 5,000 unit SQ TID [facility] Last Admin: 04/29/20 13:27 Dose: 5,000 unit Documented by: Nicardipine HCl 25 mg/ (Dextrose) 250 mls @ 25 mls/hr IVPB TITR [facility]; Protocol Last Titration: 04/29/20 12:55 Dose: 0 mg/hr, 0 mls/hr Documented by: Losartan Potassium (Cozaar -) 50 mg PO DAILY [facility] Last Admin: 04/29/20 09:04 Dose: 50 mg Documented by: Mupirocin (Bactroban Ointment (For Decolonization) -) 1 applic NS BID [facility] Stop: 05/02/20 23:29 Last Admin: 04/29/20 09:04 Dose: 1 applic Documented by: Nifedipine (Procardia Xl -) 60 mg PO DAILY [facility] Last Admin: 04/29/20 09:03 Dose: 60 mg Documented by: - Objective Vital Signs: Vital Signs Temperature 98.8 F 04/29/20 14:00 Pulse Rate 81 04/29/20 16:00 Respiratory Rate 18 04/29/20 16:00 Blood Pressure 148/77 04/29/20 16:00 O2 Sat by Pulse Oximetry (%) 98 04/29/20 16:00 Constitutional: Yes: Calm Eyes: Yes: Conjunctiva Clear HENT: Yes: Atraumatic Cardiovascular: Yes: S1, S2 Respiratory: Yes: CTA Bilaterally Gastrointestinal: Yes: Normal Bowel Sounds, Soft Genitourinary: Yes: WNL Musculoskeletal: Yes: WNL Edema: No Neurological: Yes: Oriented Psychiatric: Yes: Oriented Labs: CBC, BMP 04/29/20 05:45 04/29/20 05:45 Problem List - Problems (1) CKD (chronic kidney disease) Code(s): N18.9 - CHRONIC KIDNEY DISEASE, UNSPECIFIED (2) Hypertensive urgency Code(s): I16.0 - HYPERTENSIVE URGENCY Assessment/Plan Current Medications Generic Name Dose Route Start Last Admin Trade Name Freq PRN Reason Stop Dose Admin Acetaminophen 650 mg 04/28/20 02:04 Tylenol - PO Q6H PRN Fever Or Pain Chlorhexidine Gluconate 1 applic 04/28/20 22:00 04/28/20 22:08 Hibiclens For Decolonization - TP 1 applic HS [facility] Administration Heparin Sodium (Porcine) 5,000 unit 04/28/20 22:00 04/29/20 13:27 Heparin - SQ 5,000 unit TID [facility] Administration Nicardipine HCl 25 mg/ 250 mls @ 25 mls/hr 04/28/20 02:45 04/29/20 12:55 Dextrose IVPB 0 mg/hr TITR [facility] 0 mls/hr Titration Protocol 2.5 MG/HR Losartan Potassium 50 mg 04/28/20 13:00 04/29/20 09:04 Cozaar - PO 50 mg DAILY [facility] Administration Mupirocin 1 applic 04/27/20 23:30 04/29/20 09:04 Bactroban Ointment (For Decolonization) - NS 05/02/20 23:29 1 applic BID [facility] Administration Nifedipine 60 mg 04/29/20 10:00 04/29/20 09:03 Procardia Xl - PO 60 mg DAILY [facility] Administration Impression 1. CKD 2. hypertensive urgency 3. hx f dvt/PE 4. non compliance 5. s/p fall 6. proteinuria Plan - bp is improving - titrate down nicardipine drip - avoid hypotension - will need to gradually decrease bp - cont to monitor renal function - cont losartan
[2020-04-29] MEDS: metoPROLOL SUCCINATE 25 MG TAB.SR.24H (FP) PO SCH (22:09)
[2020-04-29] MEDS: CHLORHEXIDINE GLUCONATE 4% CLEANSER FOR DECOLONIZATION TP SCH (22:09)
[2020-04-30] MEDS: HEPARIN NA (PORCINE) 5,000 UNITS/ML 1ML VIAL SQ SCH ×3 (06:30→21:30)
[2020-04-30 07:00] LABS: HEMATOCRIT 38.7 % (32.4-45.2); HEMOGLOBIN 12.5 GM/dL (10.7-15.3); MCH 26.2 pg (25.7-33.7); MCHC 32.3 g/dl (32.0-36.0); MEAN CELL VOLUME 81.1 fl (80-96); MEAN PLT VOLUME 9.8 fl (7.5-11.1); PLATELET COUNT 189 K/MM3 (134-434); RBC 4.77 M/mm3 (3.60-5.2); RDW 15.3 % (11.6-15.6); WHITE BLOOD COUNT 8.9 K/mm3 (4.0-10.0)
[2020-04-30 07:21] LABS: BILIRUBIN,TOTAL 0.9 mg/dL (0.2-1); BLOOD UREA NITROGEN 26.9 mg/dL (7-18); CALCIUM 8.6 mg/dL (8.5-10.1); CREATININE 1.8 mg/dL (0.55-1.3); PHOSPHOROUS 3.5 mg/dL (2.5-4.9); POTASSIUM 4.4 mmol/L (3.5-5.1); TOT PROT 7.4 g/dl (6.4-8.2)
[2020-04-30] MEDS: MUPIROCIN 2% TOPICAL OINTMENT FOR DECOLONIZATION NS SCH ×2 (10:32→21:31)
[2020-04-30] MEDS: NIFEdipine E.R 60 MG TABLET PO SCH (10:32)
[2020-04-30] MEDS: metoPROLOL SUCCINATE 25 MG TAB.SR.24H (FP) PO SCH (10:32)
[2020-04-30] MEDS: LOSARTAN POTASSIUM 50 MG TABLET (FP) PO SCH (10:32)
--- NOTE | 2020-04-30 11:24 | PN ---
Progress Note (short form) - Note Progress Note: SUBJECTIVE: Patient seen and examined in the ICU. -no complaints -off cardene gtt > 6hrs Vital Signs Temp 97.7 F 04/30/20 10:00 Pulse 76 04/30/20 10:00 Resp 15 04/30/20 10:00 BP 148/69 04/30/20 10:00 Pulse Ox 97 04/30/20 10:00 Intake & Output 04/29/20 04/29/20 04/30/20 11:59 23:59 11:59 Intake Total 558 660 100 Balance 558 660 100 Weight 129.274 kg Intake: IV 558 150 Cardene 25 mg In D5w - 558 150 240 ml @ 2.5 MG/HR 25 mls /hr IVPB TITR [facility] Rx#: [id number] IVPB 30 Oral 480 100 Other: Voiding Method Bedpan Toilet Toilet # Unmeasured Voids Void 6 1 1 Bowel Movement No Yes No # Bowel Movements 0 Height 5 ft 6 in Body Mass Index (BMI) 46.0 Current Medications Generic Name Dose Route Start Last Admin Trade Name Freq PRN Reason Stop Dose Admin Acetaminophen 650 mg 04/28/20 02:04 Tylenol - PO Q6H PRN Fever Or Pain Chlorhexidine Gluconate 1 applic 04/28/20 22:00 04/29/20 22:09 Hibiclens For Decolonization - TP 1 applic HS [facility] Administration Heparin Sodium (Porcine) 5,000 unit 04/28/20 22:00 04/30/20 06:30 Heparin - SQ 5,000 unit TID [facility] Administration Nicardipine HCl 25 mg/ 250 mls @ 25 mls/hr 04/28/20 02:45 04/29/20 12:55 Dextrose IVPB 0 mg/hr TITR [facility] 0 mls/hr Titration Protocol 2.5 MG/HR Losartan Potassium 50 mg 04/28/20 13:00 04/30/20 10:32 Cozaar - PO 50 mg DAILY [facility] Administration Metoprolol Succinate 25 mg 04/29/20 21:30 04/30/20 10:32 Toprol Xl - PO 25 mg DAILY [facility] Administration Mupirocin 1 applic 04/27/20 23:30 04/30/20 10:32 Bactroban Ointment (For Decolonization) - NS 05/02/20 23:29 1 applic BID [facility] Administration Nifedipine 60 mg 08/21/20 10:00 04/30/20 10:32 Procardia Xl - PO 60 mg DAILY [facility] Administration Discontinued Medications Generic Name Dose Route Start Last Admin Trade Name Ibis PRN Reason Stop Dose Admin Hydrochlorothiazide 25 mg 04/27/20 19:38 04/27/20 20:03 Hctz - PO 04/27/20 19:39 25 mg ONCE ONE Administration Nicardipine HCl 25 mg/ 250 mls @ 25 mls/hr 04/27/20 21:15 04/28/20 02:30 Dextrose IVPB 2.5 mg/hr TITR [facility] 25 mls/hr Titration Protocol 2.5 MG/HR Labetalol HCl 10 mg 04/27/20 15:27 04/27/20 15:35 Normodyne Injection - IVPUSH 04/27/20 15:28 10 mg ONCE ONE Administration Labetalol HCl 10 mg 04/27/20 16:50 04/27/20 17:03 Normodyne Injection - IVPUSH 04/27/20 16:51 10 mg ONCE ONE Administration Labetalol HCl 20 mg 04/27/20 19:37 04/27/20 20:02 Normodyne Injection - IVPUSH 04/27/20 19:38 20 mg ONCE ONE Administration Losartan Potassium 100 mg 04/27/20 19:38 04/27/20 20:03 Cozaar - PO 04/27/20 19:39 100 mg ONCE ONE Administration Magnesium Oxide 800 mg 04/29/20 15:30 04/29/20 15:34 Mag-Ox - PO 04/29/20 15:31 800 mg ONCE ONE Administration Magnesium Sulfate 2 gm 04/29/20 08:45 04/29/20 09:04 Magnesium Sulf 2 G/50 Ml Bag IVPB 04/29/20 08:46 2 gm ONCE ONE Administration GENERAL: Awake, alert, and fully oriented, in no acute distress. HEAD: Normal with no signs of trauma. EYES: Pupils equal, round and reactive to light, extraocular movements intact, sclera anicteric, conjunctiva clear. No lid lag. EARS, NOSE, THROAT: Ears normal, nares patent, oropharynx clear without exudates. Moist mucous membranes. NECK: Normal range of motion, supple without lymphadenopathy, JVD, or masses. LUNGS: Breath sounds equal, clear to auscultation bilaterally. No wheezes, and no crackles. No accessory muscle use. HEART: Regular rate and rhythm, normal S1 and S2 without murmur, rub or gallop. ABDOMEN: Soft, nontender, not distended, normoactive bowel sounds, no guarding, no rebound, no masses. No hepatomegaly or splenomegaly. MUSCULOSKELETAL: Normal range of motion at all joints. No bony deformities or tenderness. No CVA tenderness. UPPER EXTREMITIES: 2+ pulses, warm, well-perfused. No cyanosis. No clubbing. Cap refill <2 seconds. No peripheral edema. LOWER EXTREMITIES: 2+ pulses, warm, well-perfused. No calf tenderness. No peripheral edema. NEUROLOGICAL: non-focal PSYCHIATRIC: Cooperative. Good eye contact. Appropriate mood and affect. SKIN: Warm, dry, normal turgor, no rashes or lesions noted. Laboratory Last Values WBC 8.9 K/mm3 (4.0-10.0) 04/30/20 05:55 RBC 4.77 M/mm3 (3.60-5.2) 04/30/20 05:55 Hgb 12.5 GM/dL (10.7-15.3) 04/30/20 05:55 Hct 38.7 % (32.4-45.2) 04/30/20 05:55 MCV 81.1 fl (80-96) 04/30/20 05:55 MCH 26.2 pg (25.7-33.7) 04/30/20 05:55 MCHC 32.3 g/dl (32.0-36.0) 04/30/20 05:55 RDW 15.3 % (11.6-15.6) 04/30/20 05:55 Plt Count 189 K/MM3 (134-434) 04/30/20 05:55 MPV 9.8 fl (7.5-11.1) 04/30/20 05:55 Absolute Neuts (auto) 6.0 K/mm3 (1.5-8.0) 04/28/20 05:40 Neutrophils % 69.7 % (42.8-82.8) 04/28/20 05:40 Lymphocytes % 22.4 % (8-40) 04/28/20 05:40 Monocytes % 6.3 % (3.8-10.2) 04/28/20 05:40 Eosinophils % 1.2 % (0-4.5) 04/28/20 05:40 Basophils % 0.4 % (0-2.0) 04/28/20 05:40 Nucleated RBC % 0 % (0-0) 04/28/20 05:40 Sodium 138 mmol/L (136-145) 04/30/20 05:55 Potassium 4.4 mmol/L (3.5-5.1) 04/30/20 05:55 Chloride 104 mmol/L (98-107) 04/30/20 05:55 Carbon Dioxide 27 mmol/L (21-32) 04/30/20 05:55 Anion Gap 7 MMOL/L (8-16) L 04/30/20 05:55 BUN 26.9 mg/dL (7-18) H 04/30/20 05:55 Creatinine 1.8 mg/dL (0.55-1.3) H 04/30/20 05:55 Est GFR (CKD-EPI)AfAm 32.03 04/30/20 05:55 Est GFR (CKD-EPI)NonAf 27.63 04/30/20 05:55 POC Glucometer 142 UNITS (80-120) 04/30/20 06:07 Random Glucose 140 mg/dL (74-106) H 04/30/20 05:55 Hemoglobin A1c % 6.9 % (4.2-6.3) H 04/30/20 05:55 Calcium 8.6 mg/dL (8.5-10.1) 04/30/20 05:55 Phosphorus 3.5 mg/dL (2.5-4.9) 04/30/20 05:55 Magnesium 2.0 mg/dL (1.8-2.4) 04/30/20 05:55 Total Bilirubin 0.9 mg/dL (0.2-1) 04/30/20 05:55 AST 16 U/L (15-37) 04/30/20 05:55 ALT 22 U/L (13-61) 04/30/20 05:55 Alkaline Phosphatase 117 U/L (45-117) 04/30/20 05:55 Creatine Kinase 303 U/L (26-192) H 04/27/20 15:30 Creatine Kinase Index 0.9 % (0.0-5.0) 04/27/20 15:30 CK-MB (CK-2) 3.0 ng/mL (0.5-3.6) 04/27/20 15:30 Troponin I < 0.02 ng/ml (0.00-0.05) 04/27/20 15:30 Total Protein 7.4 g/dl (6.4-8.2) 04/30/20 05:55 Albumin 3.0 g/dl (3.4-5.0) L 04/30/20 05:55 Urine Color Yellow 04/27/20 19:00 Urine Appearance Clear 04/27/20 19:00 Urine pH 5.0 (5.0-8.0) 04/27/20 19:00 Ur Specific Arthur 1.016 (1.010-1.035) 04/27/20 19:00 Urine Protein 3+ (NEGATIVE) H 04/27/20 19:00 Urine Glucose (UA) Negative (NEGATIVE) 04/27/20 19:00 Urine Ketones Negative (NEGATIVE) 04/27/20 19:00 Urine Blood 1+ (NEGATIVE) H 04/27/20 19:00 Urine Nitrite Negative (NEGATIVE) 04/27/20 19:00 Urine Bilirubin Negative (NEGATIVE) 04/27/20 19:00 Urine Urobilinogen 0.2 mg/dL (0.2-1.0) 04/27/20 19:00 Ur Leukocyte Esterase 1+ (NEGATIVE) H 04/27/20 19:00 Urine WBC (Auto) 196 /uL (0-25.8) 04/27/20 19:00 Urine RBC (Auto) 12 /uL (0-23.9) 04/27/20 19:00 Urine Casts (Auto) 2 /uL (0-3.1) 04/27/20 19:00 U Epithel Cells (Auto) 26 /uL (0-25.1) 04/27/20 19:00 Urine Bacteria (Auto) 1977 /uL (0-1359) 04/27/20 19:00 COVID-19 ([facility]) Not detected (Not Detected) 04/27/20 21:05 ASSESSMENT/PLAN: Hypertensive Urgency History of DVT, PE : Need to find out more details but she has not been on AC Non-compliance with medications and health care follow up Morbid Obesity R/O OSAS Off cardene ARB & Procardia XL SBP goal less than 160 Weight loss VTE prophylaxis Ok for Cardiology floor oob as tolerated Doug HALLP
--- NOTE | 2020-04-30 11:40 | PN ---
Progress Note (short form) - Note Progress Note: Chief Complaint: no cp sob palps dizzy History of Present Illness: HTN CKD Remote hx DVT and PE (4 years ago during prolonged hospitalization) SH: Non smoker Current Medications Generic Name Dose Route Start Last Admin Trade Name Freq PRN Reason Stop Dose Admin Acetaminophen 650 mg 04/28/20 02:04 Tylenol - PO Q6H PRN Fever Or Pain Chlorhexidine Gluconate 1 applic 04/28/20 22:00 04/29/20 22:09 Hibiclens For Decolonization - TP 1 applic HS [facility] Administration Heparin Sodium (Porcine) 5,000 unit 04/28/20 22:00 04/30/20 06:30 Heparin - SQ 5,000 unit TID [facility] Administration Nicardipine HCl 25 mg/ 250 mls @ 25 mls/hr 04/28/20 02:45 04/29/20 12:55 Dextrose IVPB 0 mg/hr TITR [facility] 0 mls/hr Titration Protocol 2.5 MG/HR Losartan Potassium 50 mg 04/28/20 13:00 04/30/20 10:32 Cozaar - PO 50 mg DAILY [facility] Administration Metoprolol Succinate 25 mg 04/29/20 21:30 04/30/20 10:32 Toprol Xl - PO 25 mg DAILY [facility] Administration Mupirocin 1 applic 04/27/20 23:30 04/30/20 10:32 Bactroban Ointment (For Decolonization) - NS 05/02/20 23:29 1 applic BID [facility] Administration Nifedipine 60 mg 04/29/20 10:00 04/30/20 10:32 Procardia Xl - PO 60 mg DAILY [facility] Administration Vital Signs Period Temp Pulse Resp BP Sys/Quiroz Pulse Ox Last 24 Hr 97.7 F-98.8 F 66-100 15-19 131-180/67-97 93-99 Constitutional: Yes: No Distress, Calm Cardiovascular: Yes: Regular Rate and Rhythm Respiratory: Yes: CTA Bilaterally Gastrointestinal: Yes: Soft (nt), Abdomen, Obese Edema: No Neurological: Yes: Alert, Oriented no jaundice diaphoresis Labs: CBC, BMP 04/30/20 05:55 04/30/20 05:55 - ....Imaging EKG: Image Reviewed Assessment/Plan tele: sr cxr: clear ecg: sr, nl intervals no ischemic changes a/p: 74 f hx htn, ckd, pe/dvt here s/p fall. htn: -improved, cont po meds, monitor off nicard gtt nuvia/ckd: -cr improving, cont bp control, monitor cr fall: -mechanical fall, no suggestion of cardiac etiology
--- NOTE | 2020-04-30 15:38 | PN ---
Progress Note (short form) - Note Progress Note: Problems 1. CKD 2. hypertensive urgency 3. hx f dvt/PE 4. non compliance 5. s/p fall 6. proteinuria Active Medications Acetaminophen (Tylenol -) 650 mg PO Q6H PRN PRN Reason: Fever Or Pain Chlorhexidine Gluconate (Hibiclens For Decolonization -) 1 applic TP HS [facility] Last Admin: 04/29/20 22:09 Dose: 1 applic Documented by: Heparin Sodium (Porcine) (Heparin -) 5,000 unit SQ TID [facility] Last Admin: 04/30/20 13:59 Dose: 5,000 unit Documented by: Nicardipine HCl 25 mg/ (Dextrose) 250 mls @ 25 mls/hr IVPB TITR [facility]; Protocol Last Titration: 04/29/20 12:55 Dose: 0 mg/hr, 0 mls/hr Documented by: Losartan Potassium (Cozaar -) 50 mg PO DAILY [facility] Last Admin: 04/30/20 10:32 Dose: 50 mg Documented by: Metoprolol Succinate (Toprol Xl -) 25 mg PO DAILY [facility] Last Admin: 04/30/20 10:32 Dose: 25 mg Documented by: Mupirocin (Bactroban Ointment (For Decolonization) -) 1 applic NS BID [facility] Stop: 05/02/20 23:29 Last Admin: 04/30/20 10:32 Dose: 1 applic Documented by: Nifedipine (Procardia Xl -) 60 mg PO DAILY [facility] Last Admin: 04/30/20 10:32 Dose: 60 mg Documented by: Last Vital Signs Temp Pulse Resp BP Pulse Ox 97.9 F 83 16 147/78 96 04/30/20 14:00 04/30/20 14:00 04/30/20 14:00 04/30/20 14:00 04/30/20 14:00 Constitutional: Yes: Calm Eyes: Yes: Conjunctiva Clear HENT: Yes: Atraumatic Cardiovascular: Yes: S1, S2 Respiratory: Yes: CTA Bilaterally Gastrointestinal: Yes: Normal Bowel Sounds, Soft Genitourinary: Yes: WNL Musculoskeletal: Yes: WNL Edema: No Neurological: Yes: Oriented Psychiatric: Yes: Oriented CBC, BMP 04/30/20 05:55 04/30/20 05:55 IMP- s/p HTN urgency resolved CKD Plan - continue current mgmt -
[2020-04-30] MEDS: CHLORHEXIDINE GLUCONATE 4% CLEANSER FOR DECOLONIZATION TP SCH (21:37)
[2020-04-30] MEDS: INSULIN SLIDING SCALE (NOVOLOG) 1 VIAL SQ SCH (21:37)
[2020-05-01] MEDS: HEPARIN NA (PORCINE) 5,000 UNITS/ML 1ML VIAL SQ SCH ×3 (06:38→22:04)
[2020-05-01] MEDS: INSULIN SLIDING SCALE (NOVOLOG) 1 VIAL SQ SCH ×4 (07:39→22:03)
[2020-05-01] MEDS: NIFEdipine E.R. 90 MG TABLET PO SCH (10:11)
[2020-05-01] MEDS: LOSARTAN POTASSIUM 50 MG TABLET (FP) PO SCH (10:11)
[2020-05-01] MEDS: metoPROLOL SUCCINATE 25 MG TAB.SR.24H (FP) PO SCH (10:11)
[2020-05-01] MEDS: MUPIROCIN 2% TOPICAL OINTMENT FOR DECOLONIZATION NS SCH (10:12)
[2020-05-01] MEDS ORDERED: hydrALAZINE HCL 20 MG/ML VIAL IVPUSH ONE (10:36)
--- NOTE | 2020-05-01 11:15 | PN ---
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) SH: Non smoker Current Medications Generic Name Dose Route Start Last Admin Trade Name Freq PRN Reason Stop Dose Admin Acetaminophen 650 mg 04/28/20 02:04 Tylenol - PO Q6H PRN Fever Or Pain Chlorhexidine Gluconate 1 applic 04/28/20 22:00 04/30/20 21:37 Hibiclens For Decolonization - TP 1 applic HS [facility] Administration Heparin Sodium (Porcine) 5,000 unit 04/28/20 22:00 05/01/20 06:38 Heparin - SQ 5,000 unit TID [facility] Administration Insulin Aspart 1 vial 04/30/20 22:00 05/01/20 07:39 Novolog Vial Sliding Scale - SQ Not Given ACHS [facility] Protocol Losartan Potassium 50 mg 04/28/20 13:00 05/01/20 10:11 Cozaar - PO 50 mg DAILY [facility] Administration Metoprolol Succinate 25 mg 04/29/20 21:30 05/01/20 10:11 Toprol Xl - PO 25 mg DAILY [facility] Administration Mupirocin 1 applic 04/27/20 23:30 05/01/20 10:12 Bactroban Ointment (For Decolonization) - NS 05/02/20 23:29 1 applic BID [facility] Administration Nifedipine 90 mg 05/01/20 10:00 05/01/20 10:11 Procardia Xl - PO 90 mg DAILY [facility] Administration Vital Signs Period Temp Pulse Resp BP Sys/Quiroz Pulse Ox Last 24 Hr 97.6 F-98.6 F 65-92 14-101 90-164/72-128 95-98 Constitutional: Yes: No Distress, Calm Cardiovascular: Yes: Regular Rate and Rhythm Respiratory: Yes: CTA Bilaterally Gastrointestinal: Yes: Soft (nt), Abdomen, Obese Edema: No Neurological: Yes: Alert, Oriented no jaundice diaphoresis Labs: CBC, BMP 04/30/20 05:55 04/30/20 05:55 - ....Imaging EKG: Image Reviewed Assessment/Plan tele: sr cxr: clear ecg: sr, nl intervals no ischemic changes a/p: 74 f hx htn, ckd, pe/dvt here s/p fall. htn: -improved, cont po meds, monitor off nicard gtt. uptitrate meds further if needed during outpt f/u. nuvia/ckd: -cr improving, cont bp control fall: -mechanical fall, no suggestion of cardiac etiology
[2020-05-01] MEDS ORDERED: ACETAMINOPHEN 325 MG TABLET (FP) PO PRN (12:56)
--- NOTE | 2020-05-01 18:00 | PN ---
Progress Note (short form) - Note Progress Note: Problems 1. CKD 2. hypertensive urgency 3. hx f dvt/PE 4. non compliance 5. s/p fall 6. proteinuria Active Medications Acetaminophen (Tylenol -) 650 mg PO Q6H PRN PRN Reason: Fever Heparin Sodium (Porcine) (Heparin -) 5,000 unit SQ TID [facility] Last Admin: 05/01/20 13:51 Dose: 5,000 unit Documented by: Insulin Aspart (Novolog Vial Sliding Scale -) 1 vial SQ ACHS [facility]; Protocol Last Admin: 05/01/20 17:33 Dose: Not Given Documented by: Losartan Potassium (Cozaar -) 50 mg PO DAILY [facility] Metoprolol Succinate (Toprol Xl -) 25 mg PO DAILY [facility] Nifedipine (Procardia Xl -) 90 mg PO DAILY [facility] Last Admin: 05/01/20 10:11 Dose: 90 mg Documented by: Last Vital Signs Temp Pulse Resp BP Pulse Ox 98.2 F 83 20 166/97 96 05/01/20 14:38 05/01/20 14:38 05/01/20 14:38 05/01/20 14:38 05/01/20 13:10 Constitutional: Yes: No Distress, Calm Cardiovascular: Yes: Regular Rate and Rhythm Respiratory: Yes: CTA Bilaterally Gastrointestinal: Yes: Soft (nt), Abdomen, Obese Edema: No Neurological: Yes: Alert, Oriented no jaundice diaphoresis CBC, BMP 04/30/20 05:55 04/30/20 05:55 IMP- s/p HTN urgency needs better control CKD Plan - continue current mgmt -
[2020-05-01] MEDS ORDERED: INSULIN (NOVOLOG) ASPART 100 UNITS/ML 10ML VIAL ONE (21:25)
[2020-05-02] MEDS: INSULIN SLIDING SCALE (NOVOLOG) 1 VIAL SQ SCH ×4 (06:25→22:25)
[2020-05-02] MEDS: HEPARIN NA (PORCINE) 5,000 UNITS/ML 1ML VIAL SQ SCH ×3 (06:25→22:25)
[2020-05-02] MEDS ORDERED: metoPROLOL SUCCINATE 25 MG TAB.SR.24H (FP) PO SCH (10:00)
[2020-05-02] MEDS: NIFEdipine E.R. 90 MG TABLET PO SCH (10:02)
[2020-05-02] MEDS: LOSARTAN POTASSIUM 50 MG TABLET (FP) PO SCH (10:02)
--- NOTE | 2020-05-02 10:10 | PN ---
Physical Exam: SUBJECTIVE: Patient seen and examined at bedside no acute events overnight patient states she is feeling [facility] better and her BP has been much better controlled she is anxious to leave OBJECTIVE: Vital Signs Period Temp Pulse Resp BP Sys/Quiroz Pulse Ox Last 24 Hr 98 F-98.5 F 69-92 18-20 138-166/56-97 96-99 GENERAL: The patient is awake, alert, and fully oriented, in no acute distress. EYES: PEERLA: EOMI; no sclerla ixcterus NECK: no JVD no lymphadenopathy LUNGS: CTA Bl no rals, rhonchi or wheezing. HEART: Regular rate and rhythm, S1, S2 without murmur, rub or gallop. ABDOMEN: Soft, NT ND +BS in all 4 quadrants EXTREMITIES: 2+ pulses, warm, well-perfused, no edema. PSYCH: Normal mood, normal affect. SKIN: Warm, dry, normal turgor, no rashes or lesions noted Laboratory Results - last 24 hr 05/01/20 05/01/20 05/01/20 12:08 16:39 22:01 POC Glucometer 154 91 136 05/02/20 06:21 POC Glucometer 148 Active Medications Generic Name Dose Route Start Last Admin Trade Name Freq PRN Reason Stop Dose Admin Acetaminophen 650 mg 05/01/20 12:56 Tylenol - PO Q6H PRN Fever Heparin Sodium (Porcine) 5,000 unit 05/01/20 14:00 05/02/20 06:25 Heparin - SQ 5,000 unit TID MANDY Administration Insulin Aspart 1 vial 05/01/20 16:30 05/02/20 06:25 Novolog Vial Sliding Scale - SQ Not Given ACHS [facility] Protocol Losartan Potassium 50 mg 05/02/20 10:00 05/02/20 10:02 Cozaar - PO 50 mg DAILY MANDY Administration Metoprolol Succinate 50 mg 05/02/20 10:00 05/02/20 10:02 Toprol Xl - PO 50 mg DAILY MANDY Administration Nifedipine 90 mg 05/01/20 10:00 05/02/20 10:02 Procardia Xl - PO 90 mg DAILY MANDY Administration ASSESSMENT/PLAN: 4 yo F PMH HTN, DVT/PE ( not on AC) presented to ED s/p mechanical fall. admitted to ICU for hypertensive urgency Neuro: AOx3 CT head negative for acute pathology HTN cardio recs appreciated cont cozaar cont procardia cont tele monitoring cont metoprolol no acute events SARAH vs CKD - f/e/n not on standing fluids monitor electrolytes sodium diet Problem List - Problems (1) CKD (chronic kidney disease) Code(s): N18.9 - CHRONIC KIDNEY DISEASE, UNSPECIFIED (2) Hypertensive urgency Code(s): I16.0 - HYPERTENSIVE URGENCY ATTENDING PHYSICIAN STATEMENT I saw and evaluated the patient. I reviewed the resident's note and discussed the case with the resident. I agree with the resident's findings and plan as documented. SUBJECTIVE: OBJECTIVE: ASSESSMENT AND PLAN:
--- NOTE | 2020-05-02 11:25 | PN ---
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) SH: Non smoker Current Medications Generic Name Dose Route Start Last Admin Trade Name Freq PRN Reason Stop Dose Admin Acetaminophen 650 mg 05/01/20 12:56 Tylenol - PO Q6H PRN Fever Heparin Sodium (Porcine) 5,000 unit 05/01/20 14:00 05/02/20 06:25 Heparin - SQ 5,000 unit TID MANDY Administration Insulin Aspart 1 vial 05/01/20 16:30 05/02/20 06:25 Novolog Vial Sliding Scale - SQ Not Given ACHS MANDY Protocol Losartan Potassium 50 mg 05/02/20 10:00 05/02/20 10:02 Cozaar - PO 50 mg DAILY MANDY Administration Metoprolol Succinate 50 mg 05/02/20 10:00 05/02/20 10:02 Toprol Xl - PO 50 mg DAILY MANDY Administration Nifedipine 90 mg 05/01/20 10:00 05/02/20 10:02 Procardia Xl - PO 90 mg DAILY MANDY Administration Vital Signs Period Temp Pulse Resp BP Sys/Quiroz Pulse Ox Last 24 Hr 98 F-98.5 F 69-92 18-20 138-166/56-97 96-99 Constitutional: Yes: No Distress, Calm Cardiovascular: Yes: Regular Rate and Rhythm Respiratory: Yes: CTA Bilaterally Gastrointestinal: Yes: Soft (nt), Abdomen, Obese Edema: No Neurological: Yes: Alert, Oriented no jaundice diaphoresis Labs: CBC, BMP 04/30/20 05:55 04/30/20 05:55 - ....Imaging EKG: Image Reviewed Assessment/Plan tele: sr cxr: clear ecg: sr, nl intervals no ischemic changes a/p: 74 f hx htn, ckd, pe/dvt here s/p fall. htn: -off nicard gtt, improved, cont po meds, will increase toprol for better control. nuvia/ckd: -cr improving, cont bp control fall: -mechanical fall, no suggestion of cardiac etiology
--- NOTE | 2020-05-02 15:44 | PN ---
Progress Note, Physician History of Present Illness: Pt seen and examined at bedside. She is awake and alert. She denies shortness of breath. - Current Medication List Current Medications: Active Medications Acetaminophen (Tylenol -) 650 mg PO Q6H PRN PRN Reason: Fever Heparin Sodium (Porcine) (Heparin -) 5,000 unit SQ TID [facility] Last Admin: 05/02/20 14:34 Dose: 5,000 unit Documented by: Insulin Aspart (Novolog Vial Sliding Scale -) 1 vial SQ ACHS [facility]; Protocol Last Admin: 05/02/20 12:20 Dose: Not Given Documented by: Losartan Potassium (Cozaar -) 50 mg PO DAILY [facility] Last Admin: 05/02/20 10:02 Dose: 50 mg Documented by: Metoprolol Succinate (Toprol Xl -) 50 mg PO DAILY [facility] Last Admin: 05/02/20 10:02 Dose: 50 mg Documented by: Nifedipine (Procardia Xl -) 90 mg PO DAILY [facility] Last Admin: 05/02/20 10:02 Dose: 90 mg Documented by: - Objective Vital Signs: Vital Signs Temperature 98.4 F 05/02/20 13:00 Pulse Rate 74 05/02/20 13:00 Respiratory Rate 18 05/02/20 13:00 Blood Pressure 143/77 05/02/20 13:00 O2 Sat by Pulse Oximetry (%) 96 05/02/20 13:00 Constitutional: Yes: Calm Eyes: Yes: Conjunctiva Clear HENT: Yes: Atraumatic Neck: Yes: Supple Cardiovascular: Yes: S1, S2 Respiratory: Yes: CTA Bilaterally Gastrointestinal: Yes: Soft Genitourinary: Yes: WNL Breast(s): Yes: WNL Edema: Yes Edema: LLE: Trace, RLE: Trace Neurological: Yes: Oriented Psychiatric: Yes: Oriented Labs: CBC, BMP 04/30/20 05:55 04/30/20 05:55 Problem List - Problems (1) CKD (chronic kidney disease) Code(s): N18.9 - CHRONIC KIDNEY DISEASE, UNSPECIFIED (2) Hypertensive urgency Code(s): I16.0 - HYPERTENSIVE URGENCY Assessment/Plan Current Medications Generic Name Dose Route Start Last Admin Trade Name Freq PRN Reason Stop Dose Admin Acetaminophen 650 mg 05/01/20 12:56 Tylenol - PO Q6H PRN Fever Heparin Sodium (Porcine) 5,000 unit 05/01/20 14:00 05/02/20 14:34 Heparin - SQ 5,000 unit TID MANDY Administration Insulin Aspart 1 vial 05/01/20 16:30 05/02/20 12:20 Novolog Vial Sliding Scale - SQ Not Given ACHS [facility] Protocol Losartan Potassium 50 mg 05/02/20 10:00 05/02/20 10:02 Cozaar - PO 50 mg DAILY MANDY Administration Metoprolol Succinate 50 mg 05/02/20 10:00 05/02/20 10:02 Toprol Xl - PO 50 mg DAILY MANDY Administration Nifedipine 90 mg 05/01/20 10:00 05/02/20 10:02 Procardia Xl - PO 90 mg DAILY MANDY Administration Impression 1. CKD 2. hypertensive urgency 3. hx f dvt/PE 4. non compliance 5. s/p fall 6. proteinuria Plan - check cmp in am - monitor bp - cont to titrate meds, can increase metoprolol - avoid hypotension - cont to monitor renal function - cont losartan
[2020-05-03] MEDS: HEPARIN NA (PORCINE) 5,000 UNITS/ML 1ML VIAL SQ SCH ×2 (05:33→15:05)
[2020-05-03] MEDS: INSULIN SLIDING SCALE (NOVOLOG) 1 VIAL SQ SCH ×2 (06:02→12:24)
[2020-05-03 07:57] LABS: ALBUMIN 3.2 g/dl (3.4-5.0); BILIRUBIN,TOTAL 1.1 mg/dL (0.2-1); CALCIUM 8.2 mg/dL (8.5-10.1); POTASSIUM 4.8 mmol/L (3.5-5.1); TOT PROT 7.7 g/dl (6.4-8.2)
[2020-05-03] MEDS: NIFEdipine E.R. 90 MG TABLET PO SCH (10:11)
[2020-05-03] MEDS: LOSARTAN POTASSIUM 50 MG TABLET (FP) PO SCH (10:11)
--- NOTE | 2020-05-03 10:19 | PN ---
Progress Note, Physician History of Present Illness: pulmonary alert,comfortable,-c/o sob,-cp.bp 158/96 - Current Medication List Current Medications: Active Medications Acetaminophen (Tylenol -) 650 mg PO Q6H PRN PRN Reason: Fever Heparin Sodium (Porcine) (Heparin -) 5,000 unit SQ TID [facility] Last Admin: 05/03/20 05:33 Dose: 5,000 unit Documented by: Insulin Aspart (Novolog Vial Sliding Scale -) 1 vial SQ ACHS [facility]; Protocol Last Admin: 05/03/20 06:02 Dose: Not Given Documented by: Losartan Potassium (Cozaar -) 50 mg PO DAILY [facility] Last Admin: 05/03/20 10:11 Dose: 50 mg Documented by: Metoprolol Succinate (Toprol Xl -) 100 mg PO DAILY [facility] Last Admin: 05/03/20 10:10 Dose: 100 mg Documented by: Nifedipine (Procardia Xl -) 90 mg PO DAILY [facility] Last Admin: 05/03/20 10:11 Dose: 90 mg Documented by: - Objective Vital Signs: Vital Signs Temperature 98 F 05/03/20 09:00 Pulse Rate 78 05/03/20 09:00 Respiratory Rate 18 05/03/20 09:00 Blood Pressure 158/96 05/03/20 09:00 O2 Sat by Pulse Oximetry (%) 96 05/03/20 09:00 Constitutional: Yes: Well Nourished, Calm Eyes: Yes: WNL HENT: Yes: WNL Neck: Yes: WNL Cardiovascular: Yes: Regular Rate and Rhythm, S1, S2 Respiratory: Yes: CTA Bilaterally Gastrointestinal: Yes: Normal Bowel Sounds, Soft Extremities: Yes: WNL Edema: No Labs: CBC, BMP 05/03/20 05:45 Assessment/Plan ASSESSMENT/PLAN: Hypertensive Urgency History of DVT, PE Non-compliance with medications and health care follow up Morbid Obesity R/O OSAS ARB & Procardia XL SBP goal less than 160 Sleep screen Weight loss VTE prophylaxis DR CORNELL
--- NOTE | 2020-05-03 12:00 | PN ---
Progress Note (short form) - Note Progress Note: cc: fall s: no cp sob palps dizzy Current Medications Generic Name Dose Route Start Last Admin Trade Name Freq PRN Reason Stop Dose Admin Acetaminophen 650 mg 05/01/20 12:56 Tylenol - PO Q6H PRN Fever Heparin Sodium (Porcine) 5,000 unit 05/01/20 14:00 05/03/20 05:33 Heparin - SQ 5,000 unit TID MANDY Administration Insulin Aspart 1 vial 05/01/20 16:30 05/03/20 06:02 Novolog Vial Sliding Scale - SQ Not Given ACHS MANDY Protocol Losartan Potassium 50 mg 05/02/20 10:00 05/03/20 10:11 Cozaar - PO 50 mg DAILY MANDY Administration Metoprolol Succinate 100 mg 05/03/20 10:00 05/03/20 10:10 Toprol Xl - PO 100 mg DAILY MANDY Administration Nifedipine 90 mg 05/01/20 10:00 05/03/20 10:11 Procardia Xl - PO 90 mg DAILY MANDY Administration Vital Signs Period Temp Pulse Resp BP Sys/Quiroz Pulse Ox Last 24 Hr 97 F-98.6 F 74-86 18-20 138-173/77-98 95-96 Constitutional: Yes: No Distress, Calm Cardiovascular: Yes: Regular Rate and Rhythm Respiratory: Yes: CTA Bilaterally Gastrointestinal: Yes: Soft (nt), Abdomen, Obese Edema: No Neurological: Yes: Alert, Oriented no jaundice diaphoresis - ....Imaging EKG: Image Reviewed Assessment/Plan tele: sr cxr: clear ecg: sr, nl intervals no ischemic changes a/p: 74 f hx htn, ckd, pe/dvt here s/p fall. htn: -off nicard gtt, improved, cont po meds, metoprolol increased nuvia/ckd: -cr improving, cont bp control fall: -mechanical fall, no suggestion of cardiac etiology
--- NOTE | 2020-05-03 12:09 | PN ---
Progress Note, Physician History of Present Illness: Pt seen and examined at bedside. She is awake and alert. She is eager to go home and is a little agitated about being in the hospital. - Current Medication List Current Medications: Active Medications Acetaminophen (Tylenol -) 650 mg PO Q6H PRN PRN Reason: Fever Heparin Sodium (Porcine) (Heparin -) 5,000 unit SQ TID [facility] Last Admin: 05/03/20 05:33 Dose: 5,000 unit Documented by: Insulin Aspart (Novolog Vial Sliding Scale -) 1 vial SQ ACHS [facility]; Protocol Last Admin: 05/03/20 06:02 Dose: Not Given Documented by: Losartan Potassium (Cozaar -) 50 mg PO DAILY [facility] Last Admin: 05/03/20 10:11 Dose: 50 mg Documented by: Metoprolol Succinate (Toprol Xl -) 100 mg PO DAILY [facility] Last Admin: 05/03/20 10:10 Dose: 100 mg Documented by: Nifedipine (Procardia Xl -) 90 mg PO DAILY [facility] Last Admin: 05/03/20 10:11 Dose: 90 mg Documented by: - Objective Vital Signs: Vital Signs Temperature 98 F 05/03/20 09:00 Pulse Rate 78 05/03/20 09:00 Respiratory Rate 18 05/03/20 09:00 Blood Pressure 158/96 05/03/20 09:00 O2 Sat by Pulse Oximetry (%) 96 05/03/20 09:00 Constitutional: Yes: Anxious Eyes: Yes: Conjunctiva Clear Cardiovascular: Yes: S1, S2 Respiratory: Yes: CTA Bilaterally Gastrointestinal: Yes: Soft, Abdomen, Obese Genitourinary: Yes: WNL Musculoskeletal: Yes: WNL Edema: No Neurological: Yes: Oriented Psychiatric: Yes: Oriented Labs: CBC, BMP 04/30/20 05:55 05/03/20 05:45 Problem List - Problems (1) CKD (chronic kidney disease) Code(s): N18.9 - CHRONIC KIDNEY DISEASE, UNSPECIFIED (2) Hypertensive urgency Code(s): I16.0 - HYPERTENSIVE URGENCY Assessment/Plan Current Medications Generic Name Dose Route Start Last Admin Trade Name Freq PRN Reason Stop Dose Admin Acetaminophen 650 mg 05/01/20 12:56 Tylenol - PO Q6H PRN Fever Heparin Sodium (Porcine) 5,000 unit 05/01/20 14:00 05/03/20 05:33 Heparin - SQ 5,000 unit TID MANDY Administration Insulin Aspart 1 vial 05/01/20 16:30 05/03/20 06:02 Novolog Vial Sliding Scale - SQ Not Given ACHS [facility] Protocol Losartan Potassium 50 mg 05/02/20 10:00 05/03/20 10:11 Cozaar - PO 50 mg DAILY MANDY Administration Metoprolol Succinate 100 mg 05/03/20 10:00 05/03/20 10:10 Toprol Xl - PO 100 mg DAILY MANDY Administration Nifedipine 90 mg 05/01/20 10:00 05/03/20 10:11 Procardia Xl - PO 90 mg DAILY MANDY Administration Impression 1. CKD 2. hypertensive urgency 3. hx f dvt/PE 4. non compliance 5. s/p fall 6. 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
[2020-05-03 15:10] VITALS: BP 152/80; PULSE 65; TEMP 98.1
--- NOTE | 2020-05-03 15:18 | DS ---
Physical Exam: SUBJECTIVE: Patient seen and examined. Denies light headedness, dizziness, chest pain, SOB. Endorses knee pain and has bruises from her fall. OBJECTIVE: Vital Signs Period Temp Pulse Resp BP Sys/Quiroz Pulse Ox Last 24 Hr 97 F-98.6 F 65-86 18-20 138-173/80-98 95-96 PHYSICAL EXAM GENERAL: The patient is awake, alert, and fully oriented, in no acute distress. HEAD: Normal with no signs of trauma. EYES: PERRL, extraocular movements intact, sclera anicteric, conjunctiva clear. ENT: Ears normal, nares patent, oropharynx clear without exudates, moist mucous membranes. NECK: Trachea midline, full range of motion, supple. LUNGS: Breath sounds equal, clear to auscultation bilaterally, no wheezes, no crackles, no accessory muscle use. HEART: Regular rate and rhythm, S1, S2 without murmur, rub or gallop. ABDOMEN: Soft, nontender, nondistended, normoactive bowel sounds, no guarding, no rebound, no hepatosplenomegaly, no masses. EXTREMITIES: 2+ pulses, warm, well-perfused, no edema. Bruises on knee from mechanical fall. NEUROLOGICAL: Cranial nerves II through XII grossly intact. Normal speech, gait not observed. PSYCH: Normal mood, normal affect. SKIN: Warm, dry, normal turgor, no rashes or lesions noted. LABS Laboratory Results - last 24 hr 05/02/20 05/02/20 05/03/20 17:08 22:15 05:30 Sodium Potassium Chloride Carbon Dioxide Anion Gap BUN Creatinine Est GFR (CKD-EPI)AfAm Est GFR (CKD-EPI)NonAf POC Glucometer 128 127 119 Random Glucose Calcium Total Bilirubin AST ALT Alkaline Phosphatase Total Protein Albumin 05/03/20 05/03/20 05:45 12:23 Sodium 140 Potassium 4.8 Chloride 107 Carbon Dioxide 23 Anion Gap 11 BUN 41.0 H Creatinine 2.0 H Est GFR (CKD-EPI)AfAm 28.20 Est GFR (CKD-EPI)NonAf 24.33 POC Glucometer 95 Random Glucose 121 H Calcium 8.2 L Total Bilirubin 1.1 H AST 16 ALT 21 Alkaline Phosphatase 106 Total Protein 7.7 Albumin 3.2 L HOSPITAL COURSE: Date of Admission:04/27/20 Pt was admitted for hypertensive urgency with systolic in 240s after presenting for mechanical fall. Pt is not compliant on her medications and has had similar admissions in the past. Pt required Nicardipine drip while in ICU. BP is on Losartan, nifedipine and metoprolol increased to 50mg. Pt has CKD which is now stable. Pt to have repeat BMP and follow up outpatient with nephrology, cardiology, pulm and PCP in 1 week. Date of Discharge: 05/03/20 Minutes to complete discharge: 36 Discharge Summary Problems reviewed: Yes Reason For Visit: HYPERTENSIVE URGENCY Current Active Problems CKD (chronic kidney disease) (Acute) Head injury due to trauma (Acute) Hypertensive urgency (Acute) Condition: Stable - Instructions Diet, Activity, Other Instructions: You came to the hospital after suffering from a fall at home. While you were here your blood pressure was found to be very elevated so you were started on new medications to help control your pressure. I addition, while you were here we did additional blood work and you were found to have new-onset diabetes for which you were started on medication. Your symptoms improved and you are stable to be discharged home Your diabetes number is elevated (A1C 6.9). Please follow a low sugar, low carb diet Please take the following medications daily: Cozaar 50mg daily (blood pressure med) Procardia XL 90mg daily (blood pressure med) Metoprolol 100 mg daily ( blood pressure med) Metformin 500mg twice a day (diabetes med) Please do not take norvasc 5 mg. Please follow up with your primary care physician within one week. a referral is attached for the [facility] at [facility] Please follow up with the element setter, Dr Saucedo Please follow up with the belt loop maker, Dr Carter as you will need further management of your kidneys Please follow up with the radial drill operator for plastic, Dr. Iglesias as you may need a sleep screen for sleep apnea *if you begin to experience dizziness, chest pains, shortness of breath blurred vision, please return to the emergency room We will also be prescribing you a blood pressure cuff for you to regularly check your blood pressure while at home Please report to your PCP office on 05/05/20 for repeat BMP/Renal function check (take these discharge instructions with you). Referrals: [facility] [place] [Provider Group] Magno Iglesias MD [Staff Physician] - Jeison Bolden MD [Staff Physician] - Blanca Carter MD [Staff Physician] - Disposition: HOME - Home Medications Comprehensive Discharge Medication List: Ambulatory Orders Losartan Potassium [Cozaar -] 50 mg PO DAILY #30 tablet 05/02/20 Metformin HCl [Glucophage] 500 mg PO BID #60 tablet 05/02/20 Nifedipine ER [Procardia XL -] 90 mg PO DAILY #30 tab.er.24 05/02/20 Metoprolol Succinate [Toprol XL -] 100 mg PO DAILY #30 tab 05/03/20 Miscellaneous Medical Supply [Outpatient Order] 1 each ASDIR #1 misc 05/03/20 This patient is new to me today: No Emergency Visit: Yes ED Registration Date: 04/27/20 Care time: The patient presented to the Emergency Department on the above date and was hospitalized for further evaluation of their emergent condition. Critical Care patient: No - Discharge Referral Referred to [facility] No Physician Referral: MATTEO Rome ([facility]) ATTENDING PHYSICIAN STATEMENT I saw and evaluated the patient. I reviewed the resident's note and discussed the case with the resident. I agree with the resident's findings and plan as documented. SUBJECTIVE: OBJECTIVE: ASSESSMENT AND PLAN:
--- NOTE | 2020-05-03 17:09 | PN ---
Teaching Attending Note Name of Resident: Karen Welsh ATTENDING PHYSICIAN STATEMENT I saw and evaluated the patient. I reviewed the resident's note and discussed the case with the resident. I agree with the resident's findings and plan as documented. SUBJECTIVE: Feeling well - no headache/visual disturbance/nausea/vomiting/limb numbness or weakness. OBJECTIVE: Afebrile, hemodynamically stable Last Vital Signs Temp Pulse Resp BP Pulse Ox 98.1 F 65 18 152/80 96 05/03/20 14:05 05/03/20 14:05 05/03/20 14:05 05/03/20 14:05 05/03/20 10:00 HEENT - Atraumatic, Normocephalic Heart - S1, S2, RRR Lungs - clear to auscultation Abdomen - Soft, non-tender. Bowel Sounds normal. Extremities - no calf tenderness. Neuro - AAO x 3. LIZZETH. Tone/Power normal. Laboratory Results - last 24 hr 05/02/20 05/02/20 05/03/20 17:08 22:15 05:30 Sodium Potassium Chloride Carbon Dioxide Anion Gap BUN Creatinine Est GFR (CKD-EPI)AfAm Est GFR (CKD-EPI)NonAf POC Glucometer 128 127 119 Random Glucose Calcium Total Bilirubin AST ALT Alkaline Phosphatase Total Protein Albumin 05/03/20 05/03/20 05:45 12:23 Sodium 140 Potassium 4.8 Chloride 107 Carbon Dioxide 23 Anion Gap 11 BUN 41.0 H Creatinine 2.0 H Est GFR (CKD-EPI)AfAm 28.20 Est GFR (CKD-EPI)NonAf 24.33 POC Glucometer 95 Random Glucose 121 H Calcium 8.2 L Total Bilirubin 1.1 H AST 16 ALT 21 Alkaline Phosphatase 106 Total Protein 7.7 Albumin 3.2 L Discharge Medications Medication Instructions Recorded Losartan Potassium [Cozaar -] 50 mg PO DAILY #30 tablet 05/02/20 Metformin HCl [Glucophage] 500 mg PO BID #60 tablet 05/02/20 Nifedipine ER [Procardia XL -] 90 mg PO DAILY #30 tab.er.24 05/02/20 Metoprolol Succinate [Toprol XL -] 100 mg PO DAILY #30 tab 05/03/20 Miscellaneous Medical Supply 1 each ASDIR #1 misc 05/03/20 [Outpatient Order] ASSESSMENT AND PLAN: 74 year old female with history of HTN, DVT/PE (not on AC), non-compliant with medications generally, admitted to ICU for hypertensive urgency requiring Nicardipine drip. 1. Hypertensive Urgency - resolved. BP better controlled - stable for discharge on Losartan, Nifedipine, Metoprolol 2. CKD 3 - appears stable. For repeat BMP 05/05 Nephrology follow up as out-patient. Medically Stable for discharge with Cardiology and Nephrology follow up. Pulm follow up on discharge for GENARO.
== END 2020-05-03 16:18 | disposition home or self-care (01) | DRG 305 ==
LOC: JER 14:40 → JERBED 19:03 → JICU 04-28 00:10 → J4W 05-01 12:37
PROVIDERS: ADMIT Internal Medicine Pulmonary Disease
DX: I16.0 Hypertensive urgency (principal); Z68.42 Body mass index [BMI] 45.0-49.9, adult; N17.9 Acute kidney failure, unspecified; N18.3 Chronic kidney disease, stage 3 (moderate); E66.01 Morbid (severe) obesity due to excess calories; Z91.14 Patient's other noncompliance with medication regimen; R55 Syncope and collapse; R80.9 Proteinuria, unspecified; E11.9 Type 2 diabetes mellitus without complications; S09.8XXA Other specified injuries of head, initial encounter; W19.XXXA Unspecified fall, initial encounter; Y93.9 Activity, unspecified; Y99.9 Unspecified external cause status; Y92.008 Other place in unspecified non-institutional (private) residence as the place of occurrence of the external cause
CPT/HCPCS: 36415; 70450-TC; 71046-TC-FY; 72125-TC; 73560-TC-LT-FY; 73560-TC-RT-FY; 80053; 81003; 82550; 82553; 82962; 83036; 83735; 84100; 84132; 84484; 85025; 85027; 93005; 93010; 99285-25; J1644; U0003